=== PATIENT | male | born 1940 | race Caucasian/White ===

== ENCOUNTER 2022-01-05 17:34 | Inpatient (IN) | payer OTHER, MEDICARE, SELFPAY ==
--- NOTE | ~2022-01-05 | CT_ITS ---
EXAMINATION: CT pelvis wo con DATE: 01/05/2022 21:23 INDICATION: Pelvic fracture, pain TECHNIQUE: Computed tomography (CT) of the pelvis was performed without intravenous contrast. The dos e-length product (DLP) was 158.55 mGy-cm. Automated exposure control and iterative reconstruction keli hnique were employed. COMPARISON: None FINDINGS: There is a parasymphyseal fracture on the left. There is a fracture of the right inferior p ubic ramus. There is a fracture involving the anterior wall of the left acetabulum. The bladder is di stended. There is a burst fracture L4 with vertebroplasty change. There are age indeterminate fractur es involving the pedicles, lamina, and transverse processes of L4. IMPRESSION: 1. Left parasymphyseal fracture of the pubic symphysis. 2. Fracture of the right inferior pubic ramus. 3. Fracture of the anterior wall of the left acetabulum. 4. L4 burst fracture with vertebroplasty change and age indeterminate fractures involving the pedicle s, lamina, and transverse processes of L4. Reviewed, dictated and finalized at location F. BREAKER IMPRESSION: 1. Left parasymphyseal fracture of the pubic symphysis. 2. Fracture of the right inferior pubic ramus. 3. Fracture of the anterior wall of the left acetabulum. 4. L4 burst fracture with vertebroplasty change and age indeterminate fractures involving the pedicles, lamina, and transverse processes of L4.
--- NOTE | ~2022-01-05 | XR_ITS ---
EXAMINATION: XR hip BI 2V w AP pelvis DATE: 01/05/2022 19:51 INDICATION: Back pain after fall TECHNIQUE: AP view the pelvis and two views of each hip were obtained. COMPARISON: None. FINDINGS: There are fractures of the left inferior and superior pubic rami as well as a fracture of t he left acetabulum. There is moderate osteoarthritis of the hips. Calcified atherosclerosis is noted. There is vertebroplasty change at L4. IMPRESSION: 1. Fractures of the left inferior and superior rami as well as left acetabulum. Reviewed, dictated and finalized at location F. WARE TEST DEVELOPER
--- NOTE | ~2022-01-05 | CT_ITS ---
EXAMINATION: CT lumbar spine wo con DATE: 01/05/2022 21:32 INDICATION: Low back pain after fall, history of prostate cancer TECHNIQUE: Computed tomography (CT) of the lumbar spine was performed without intravenous contrast. T he dose-length product (DLP) was 673.67 mGy-cm. Iterative reconstruction was used. COMPARISON: None FINDINGS: There is an L4 burst fracture with vertebroplasty change. There are fractures involving the pedicles, lamina, and transverse processes of L4 which are age indeterminate. The remaining lumbar v ertebral bodies are normal in height. There is severe loss of intervertebral disc space height at L5- S1. Calcified atherosclerosis is noted. The bladder is distended. There is atelectasis versus pneumon ia in the partially visualized left lower lobe. IMPRESSION: 1. Burst fracture of L4 with vertebroplasty change and fractures involving the pedicles, lamina, and transverse processes of L4 which are age indeterminate. Reviewed, dictated and finalized at location F. EMARK AFFIXER
--- NOTE | ~2022-01-05 | XR_ITS ---
EXAMINATION: XR lumbar spine min 4V DATE: 01/05/2022 19:51 INDICATION: Back pain after fall, history of prostate cancer TECHNIQUE: Anteroposterior, lateral, and bilateral oblique views of the lumbar spine, and cone-down l ateral view of the lumbosacral junction were obtained. COMPARISON: None. FINDINGS: There is a burst fracture of L4 with vertebroplasty change. There is severe loss of interve rtebral disc space height at L5-S1. The intervertebral disc spaces are otherwise maintained. No acute lumbar spine fracture is identified. There are acute fractures of the left inferior and superior pub ic rami as well as a fracture of the left acetabulum. IMPRESSION: 1. L4 burst fracture with vertebroplasty change and severe spondylosis at L5-S1 without definite acut e osseous abnormality of the lumbar spine. 2. Left pelvic fractures as described. Reviewed, dictated and finalized at location F. SINGER IMPRESSION: 1. L4 burst fracture with vertebroplasty change and severe spondylosis at L5-S1 without definite acute osseous abnormality of the lumbar spine. 2. Left pelvic fractures as described.
--- NOTE | ~2022-01-05 | MR_ITS ---
EXAMINATION: MR lumbar spine wo con DATE: 01/08/2022 08:43 INDICATION: Spinal stenosis and low back pain TECHNIQUE: Magnetic resonance imaging (MRI) of the lumbar spine was performed without intravenous con trast. Sequences included sagittal T2-weighted FSE, sagittal T2-weighted FS FSE, sagittal T1-weighted FSE, and axial T2-weighted FSE. COMPARISON: None FINDINGS: Alignment is normal. L4 burst fracture with 80% central vertebral body height loss and 8 mm retropuls ion. There are associated fractures involving the posterior elements on both the left and right of L4 . These are better delineated on the prior CT which extend fracture lines extending across both the l eft and right pedicles and base of the transverse processes as well as across the right sided lamina. There is diffuse decreased signal throughout the vertebral body and posterior elements middle part t o edema also likely related to in the diffuse sclerosis throughout the vertebral body and posterior e lements seen on the prior CT is concerning for metastatic prostate cancer. There is also absent signa l at the left-sided vertebral body corresponding to changes of prior vertebroplasty. There is T1 and T2 hyperintense fatty atrophy of the paraspinal musculature in the lower lumbar spine. This is been r eplaced with hypointense T1 and T2 signal in the soft tissues surrounding the posterior elements of L 4 which is suspicious for extraosseous extension of malignancy. Remaining vertebral body heights are normal. There is a 10 mm 1 hypointense lesion with thin peripher al increased T2 signal at the left side of the L5 vertebral body with corresponding sclerosis on CT i mages consistent with additional metastatic lesion. There is increased T2 signal at the left and righ t sacral where on prior CT where there appear to be bilateral insufficiency fractures with early webster ges of healing suggesting these are subacute to chronic. There is decreased medullary T2 signal and s uggestion of some elevation of the periosteum at the superior aspect of the right posterior iliac spi ne where there is some increased sclerosis on the prior CT which is suspicious for additional metasta tic disease. There is ballooning of the L3-L4 and L4-5 disc space on either side of the first fracture. Moderate d isc height loss at L5-S1. Disc desiccation without disc height loss at L2-L3. The conus medullaris te rminates at L1-L2. There is normal signal in the caudal spinal cord. The following disc levels are sp ecifically discussed: T12-L1: Annular fissure with tiny central disc extrusion with minimal disc material extending a few m illimeters cephalad to the inferior endplate of T12. There is mild bilateral facet joint osteoarthrit is. There is no neural foraminal stenosis. There is no central canal stenosis. L1-L2: Disc is minimally bulging with additional annular fissure with tiny central disc protrusion. T here is mild bilateral facet joint osteoarthritis. There is no neural foraminal stenosis. There is no rmal central canal stenosis. L2-L3: Disc is minimally bulging with central annular fissure. There is mild bilateral facet joint os teoarthritis. There is mild bilateral neural foraminal stenosis. There is no central canal stenosis. L3-L4: The disc does not extend beyond the margin of the retropulsed superior endplate of L4. There i s mild bilateral facet joint osteoarthritis. There is mild to moderate bilateral neural foraminal adolph nosis. There is mild central canal stenosis at the level of the disc space with severe stenosis at th e level of the L4 vertebral body due to the retropulsion. L4-L5: The disc does not extend beyond the margin of the retropulsed inferior endplate of L4. There i s mild right and moderate left facet joint osteoarthritis. There is severe right and moderate to timur re left neural foraminal stenosis. There is moderate to severe central canal adolph
[2022-01-05 18:10] VITALS: BP 168/93; PULSE 95; RESP 16; TEMP 36.1; O2SAT 100
--- NOTE | 2022-01-05 21:16 | ED.GENADULT ---
HPI - General Adult General Chief complaint: Back Pain/Injury Stated complaint: low back pain Time Seen by Provider: 01/05/22 20:58 History of Present Illness HPI narrative: Patient is a 81-year-old gentleman who presents the emergency department with chief complaint of pelvic pain. 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 The patient states that today he did not have family members at home and was having severe pain even though his [facility] has been increasing his pain medicines at home patient reports that he talked to his doctors on the phone and they told him to go to the nearest facility the patient reports no new trauma reports that the pain is what is preventing him from walking. Related Data Allergies Allergy/AdvReac Type Severity Reaction Status Date / Time No Known Allergies Allergy Verified 01/05/22 21:42 Review of Systems Review of Systems: A 10 system review of systems was completed on the patient and is negative except for what is stated in the HPI. Nursing and ancillary documentation was reviewed. Exam Narrative: GENERAL: Well-appearing, well-nourished, and in no acute distress. HEAD: Normocephalic, atraumatic. EYES: PERRLA and EOMI. ENT: Nares clear, no rhinorrhea or epistaxis. Mucous membranes moist. NECK: Supple. CHEST: Clear to auscultation. No respiratory distress. HEART: Regular rate and rhythm. No murmur heard. Normal peripheral pulses. ABDOMEN: Soft, nontender, nondistended, normal active bowel sounds. EXTREMITIES: Normal range of motion. No edema. There is tenderness to palpation in the pelvis. There is no saddle anesthesia there is no numbness in the lower extremities. SKIN: Warm, dry, no rash. NEURO: No focal deficits. Alert and oriented x3. PSYCH: Normal mood and affect. Course Vital Signs Vital signs: Vital Signs Temperature 36.1 C L 01/05/22 18:10 Pulse Rate 95 01/05/22 18:10 Respiratory Rate 16 01/05/22 18:10 Blood Pressure 168/93 H 01/05/22 18:10 Pulse Oximetry 100 01/05/22 18:10 Oxygen Delivery Room Air 01/05/22 18:10 Temperature 36.1 C L 01/05/22 18:10 Pulse Rate 92 01/05/22 22:17 Respiratory Rate 16 01/05/22 22:17 Blood Pressure 148/92 H 01/05/22 22:17 Pulse Oximetry 99 01/05/22 22:17 Oxygen Delivery Room Air 01/05/22 18:10 Medical Decision Making Vital Signs Vital Signs: Vital Signs Temperature 36.1 C L 01/05/22 18:10 Pulse Rate 95 01/05/22 18:10 Respiratory Rate 16 01/05/22 18:10 Blood Pressure 168/93 H 01/05/22 18:10 Pulse Oximetry 100 01/05/22 18:10 Oxygen Delivery Room Air 01/05/22 18:10 Temperature 36.1 C L 01/05/22 18:10 Pulse Rate 92 01/05/22 22:17 Respiratory Rate 16 01/05/22 22:17 Blood Pressure 148/92 H 01/05/22 22:17 Pulse Oximetry 99 01/05/22 22:17 Oxygen Delivery Room Air 01/05/22 18:10 Lab Data Result diagrams: 01/05/22 21:38 01/05/22 21:38 Labs: Lab Results 01/05/22 01/05/22 Range/Units 21:38 21:38 WBC 10.9 H (4.5-10.0) K/mm3 RBC 3.64 L (4.6-6.20) M/mm3 Hgb 10.1 L (14.0-18.0) g/dL Hct 32.2 L (42.0-52.0) % MCV 88.5 (80-100) fl MCH 27.7 (26-34) pg MCHC 31.4 L (32-36) g/dl RDW 15.2 H (11.5-14.5) % Plt Count 275 (150-375) k/mm3 MPV 9.5 (7.4-10.4) fl Immature Gran % (Auto) 0.4 (0-0.5) % Neut % (Auto) 84.2 H (45.5-73.1) % Lymph % (Auto) 7.7 L (18.3-44.2) % [place] % (Auto) 6.5 (2.6-8.5) % Eos % (Auto) 0.6 (0-4.4) % Baso % (Auto) 0.6 (0.2-1.2) % Lymph # (Auto) 0.84 L (0.9-3.2) K/mm3 [place] # (Auto) 0.7 H (0.1-0.6) K/mm3 Eos # (Auto) 0.1 (0-0.3) K/mm3 Baso # (Auto) 0.1 (0.0-0.1) K/mm3 Abs Immat Gra
[2022-01-05] MEDS: HYDROmorphone HCL INJ (*CRX) 1 MG/ML SYR IV PUSH ×2 (21:44→23:39)
[2022-01-05 21:45] LABS: Basophils Absolute Auto 0.1 K/mm3 (0.0-0.1); Basophils Percent Auto 0.6 % (0.2-1.2); Eosinophils Absolute Auto 0.1 K/mm3 (0-0.3); Eosinophils Percent Auto 0.6 % (0-4.4); Hematocrit 32.2 % (42.0-52.0); Hemoglobin 10.1 g/dL (14.0-18.0); Immature Granulocyte Absolute 0.04 K/mm3 (0.00-0.031); Immature Granulocyte Percent A 0.4 % (0-0.5); Lymphocytes Absolute Auto 0.84 K/mm3 (0.9-3.2); Lymphocytes Percent Auto 7.7 % (18.3-44.2); Mean Corpuscular HGB Conc 31.4 g/dl (32-36); Mean Corpuscular Hemoglobin 27.7 pg (26-34); Mean Corpuscular Volume 88.5 fl (80-100); Mean Platelet Volume 9.5 fl (7.4-10.4); Monocytes Absolute Auto 0.7 K/mm3 (0.1-0.6); Monocytes Percent Auto 6.5 % (2.6-8.5); Neutrophils Absolute Auto 9.1 K/mm3 (1.3-6.7); Neutrophils Percent Auto 84.2 % (45.5-73.1); Platelet Count Result 275 k/mm3 (150-375); Red Blood Count 3.64 M/mm3 (4.6-6.20); Red Cell Distribution Width 15.2 % (11.5-14.5); White Blood Count 10.9 K/mm3 (4.5-10.0)
[2022-01-05 21:56] LABS: Alanine Aminotransferase 15 U/L (6-50); Alkaline Phosphatase 86 U/L (38-126); Anion Gap 10 mmol/L (8-16); Aspartate Amino Transferase 29 U/L (17-59); Bilirubin,Total 0.5 mg/dL (0.2-1.3); Blood Urea Nitrogen 19 mg/dL (9-20); Calcium 8.6 mg/dL (8.4-10.2); Carbon Dioxide 25 mmol/L (22-30); Chloride 102 mmol/L (98-107); Estimated CRCL calculation 29 ml/min; Estimated Glomerular Filt Rate > 60; Glucose 116 mg/dL (65-110); Sodium 137 mmol/L (137-145)
[2022-01-05 22:17] VITALS: BP 148/92; PULSE 92; RESP 16; O2SAT 99
[2022-01-05 23:00] VITALS: BP 138/80; PULSE 80; RESP 16; TEMP 36.8; O2SAT 98
[2022-01-05 23:55] VITALS: BP 136/76; PULSE 84; RESP 16; TEMP 36.8; O2SAT 97
--- NOTE | 2022-01-06 00:31 | PM.IMHP ---
H&P: HPI History of Present Illness Date/Time: 01/05/22 23:40 Chief Complaint: Back pain Narrative: Patient is a 81-year-old male past medical history of prostate cancer, or CABG x4 April 2021, lumbar compression fracture month ago presents to ED complaints back pain and inability to ambulate. Patient about a month ago found to have an L4 compression fraction which was unable to be amended through surgical intervention. He then was sent for rehab which he has completed successfully. Over the course of the last week he has had increasing pain and over last 3-4 days he has become bedbound prompting him to come to the ED. he lives with his youngest son. Prior to last 3 4 days he was able to ambulate with a cane. He is having difficulty urinating when laying in bed as well. In the ED: Lumbar spine CT scan consistent with L4 burst fracture, pelvic CT scan consistent left acetabulum anterior wall fracture and right inferior pubic rami fracture. Patient is having significant pain requiring IV Dilaudid. He is having difficulty urinating as he is not able to urinate lying in bed and now has suprapubic fullness. ER provider talked to Dr. Paiz and Dr. Jarquin will see patient in consultation. Patient to be admitted for subacute L4 compression burst fracture and pain control. Review of Systems Review of Systems: Constitutional: No Fever, No Chills, No Night Sweats, No Fatigue, No Malaise ENT/Mouth: No Hearing Changes, No Ear Pain, No Nasal Congestion, No Sinus Pain, No Hoarseness, No sore throat, No Rhinorrhea, No Swallowing Difficulty Eyes: No Eye Pain, No Redness, No Vision Changes Cardiovascular: No Chest Pain, No Palpitations, No Dyspnea on Exertion, No Orthopnea, No Claudication, No Edema Respiratory: No Cough, No Sputum, No Wheezing, No Shortness of Breath Gastrointestinal: No Nausea, No Vomiting, No Diarrhea, No Constipation, No Abdominal Pain, No Heartburn, No Hematochezia, No Melena Genitourinary: No Dysuria, No Urinary Frequency, No Hematuria, No Urinary Incontinence, No Urgency. Endorses difficulty urinating Musculoskeletal: Endorses back pain Skin: No Skin Lesions, No Pruritis, No Hair Changes Neuro: No Weakness, No Numbness, No Paresthesias, No Loss of Consciousness, No Syncope, No Dizziness, No Headache Psych: No Anxiety/Panic, No Depression, No Insomnia Heme: No Bruising, No Bleeding Lymph: No Adenopathy Endocrine: No Polyuria, No Polydipsia, No Temperature Intolerance PMF Past Medical History Medical History Prostate cancer metastatic to bone Family History Family History Mother Old age Father Leukemia Social History Social History Social History: Lives with his youngest son. Uses cane to ambulate. Smoking status: Never smoker Alcohol intake: never Substance use: never Meds Home Medications and Allergies Allergies Allergy/AdvReac Type Severity Reaction Status Date / Time No Known Allergies Allergy Verified 01/05/22 21:42 Vital Signs Vital Signs - 24 hr 01/05/22 18:10 01/05/22 22:17 01/05/22 23:00 Temperature 36.1 C L 36.8 C Pulse Rate 95 92 80 Respiratory Rate 16 16 16 Blood Pressure 168/93 H 148/92 H 138/80 Pulse Oximetry 100 99 98 Oxygen Delivery Room Air 01/05/22 23:55 Temperature 36.8 C Pulse Rate 84 Respiratory Rate 16 Blood Pressure 136/76 Pulse Oximetry 97 Oxygen Delivery Exam Narrative: - GENERAL: Pleasant frail elderly male in no acute distress. Appears comfortable when lying down - EYES: EOMI. Anicteric. - HENT: Moist mucous membranes. Poor dentition - LUNGS: Clear to auscultation bilaterally, no wheezing, rhonchi, or rales. - CARDIOVASCULAR: Regular rate and rhythm. - ABDOMEN: Soft, non-tender and non-distended. - EXTREMITIES: Peripheral pulses 2+. Non-tender. 1+ non
--- NOTE | 2022-01-06 00:38 | ADMGEN ---
This patient, Ashu Calix, was admitted to Medical Room 251-. Patient/family oriented to hospital policies and general routines including ID bracelet, bed and alarms, visiting hours, pain management, procedures, bathroom and other care routines, personal items, smoking policy, room service/diet, and visiting hours. Information on how to activate the Rapid Response Team has been discussed. Patient/Family are encouraged to report perceived risks to care and to ask questions if they do not understand what they are told or what they should do.
[2022-01-06 00:40] VITALS: BMI 18.1
[2022-01-06 00:46] VITALS: BP 179/98; PULSE 100; RESP 16; TEMP 36.5; O2SAT 100
[2022-01-06] MEDS: HYDROmorphone HCL INJ (*CRX) 1 MG/ML SYR IV PUSH ×5 (03:35→21:55)
[2022-01-06 04:40] LABS: SARS-CoV-2 RNA PCR Negative
[2022-01-06 04:55] VITALS: BP 146/78; PULSE 87; RESP 16; TEMP 36.4; O2SAT 100
[2022-01-06 08:00] VITALS: BP 142/84; PULSE 87; RESP 16; TEMP 36.4; O2SAT 98
[2022-01-06] MEDS: ASPIRIN 81 MG CHEWABLE TABLET PO (08:14)
[2022-01-06] MEDS: ATORVASTATIN 40 MG TABLET PO (08:14)
[2022-01-06 08:15] VITALS: PULSE 85
[2022-01-06] MEDS: CHOLECALCIFEROL 1,000 UNITS TABLET 2000 UNITS PO (08:15)
[2022-01-06] MEDS: METOPROLOL SUCCINATE EXT REL 100 MG TABCR PO (08:15)
[2022-01-06] MEDS: TAMSULOSIN HCL 0.4 MG CAPSULE PO (08:15)
[2022-01-06] MEDS: FERROUS SULFATE 324 MG TABLET PO (08:15)
[2022-01-06] MEDS: AMIODARONE HCL 200 MG TABLET PO (08:15)
[2022-01-06] MEDS: lisinopriL 10 MG TABLET PO (08:15)
[2022-01-06] MEDS: DOCUSATE SODIUM 100 MG CAPSULE PO ×2 (08:22→17:10)
[2022-01-06] MEDS: polyethylene glycoL 3350 17 GM POWD.PACK PO (08:23)
[2022-01-06] MEDS: SENNOSIDES 8.6 MG TABLET PO (09:05)
--- NOTE | 2022-01-06 12:56 | PC.NURSE ---
On 01/06/22, the student, [Millie Del Rio], provided care and completed [facility] documentation on this patient. I have reviewed the student's documentation and agree with the findings.
[2022-01-06 13:29] VITALS: BMI 18.1
[2022-01-06 13:45] VITALS: BP 128/73; PULSE 81; RESP 18; TEMP 36.4; O2SAT 100
--- NOTE | 2022-01-06 15:55 | PM.CNOR ---
Assessment and Plan Assessment and plan (1) Closed pelvic fracture: Code(s): S32.9XXA - Fracture of unspecified parts of lumbosacral spine and pelvis, initial encounter for closed fracture Status: Acute Assessment and Plan: Patient is an 81-year-old gentleman who presented to the emergency room yesterday mid day with inability to walk this week because of pain and weakness in his legs. He had CT scan of his lumbar spine and pelvis and x-rays of lumbar spine and pelvis. These demonstrate subacute but unhealed fractures of left inferior pubic ramus, medial most aspect of superior pubic ramus on the left and fracture at the junction of anterior acetabulum and superior pubic ramus. There is a little bit of callus formation there is also some resorption at the fractures. Of note there is also for shortening of the left sacral ala but without visible fracture line indicating that he had a fracture of the sacral ala but this looks healed now. He fell back in March of this year and was evaluated by his primary care physician [place] and had x-rays of his pelvis and patient states that 11 fractures were identified. He may be in correct about that but it sounds from his history that he pubic ramus fractures in probably the sacral ala fractures were diagnosed at that time. Apparently the L4 compression fracture was diagnosed then but I am a little more confused about the timing of that as there was some inconsistency in his story. At the end of the interview he advised me that 3 months ago he had the vertebroplasty procedure of L4 vertebral body and that it initially it seemed to have gone well but then on subsequent x-ray it was felt to have failed. He has been living with chronic pain in his lower back seems to radiate to his thighs and then 1 month ago he fell again and his pain was worse and then this past week he is lost the ability to walk because of pain and weakness. He was started on a prostate cancer pill 3 weeks ago. This is by his primary care physician at the [facility]. He has a list of medications but I do not see it on the home meds intake in the EMR. He did not know what was called. He does take oxycodone 10 mg q.4 hours and a fentanyl patch 12 mcg every 72 hours. He also had evidence of very comminuted L4 burst fracture with comminution of the pedicles and lamina and transverse processes as well and there is evidence of prior vertebroplasty centrally and to the left in the vertebral body. There seems to be near obliteration of the foramina due to comminuted fragments on the right at the L4-[address] Cordon the neurosurgeon has been consulted for his evaluation of this. Patient has a significant past medical history that relates to these problems. He was diagnosed with prostate cancer and he states that Diederich underwent 40 radiation treatments and still has tattoo perry over the sides of both hips and over top of the symphysis pubis marking where he had the radiation. This would of resulted in significant radiation affects to the pelvis. In 2004 he had 10 more radiation treatments to L4 when he was diagnosed with a bony metastasis at that time. He denies knowledge of any other bony metastases since that time. Impression: Patient has had very poor healing of the above fractures and this is result of his previous radiation which markedly impairs the healing response after fracture. 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 I suspect that he does have a significant element of foraminal stenosis at that level which may be causing L4 radiculopathy and he may have a degree of central canal stenosis as well. I will defer evaluation of that to the diesel engine specialist. He is at increased risk for
[2022-01-06] MEDS: BISACODYL 10 MG SUPPOSITORY RECTAL (17:10)
--- NOTE | 2022-01-06 19:50 | WPDNEUROSGCN ---
Assessment and Plan Assessment and plan (1) Lumbar burst fracture: Code(s): S32.001A - Stable burst fracture of unspecified lumbar vertebra, initial encounter for closed fracture Status: Acute Plan Mr. Calix is an 81-year-old male with history of metastatic prostate cancer who presents with multiple pelvic fractures found on workup for increasing pelvic pain. He also has an L4 burst fracture for which he has had a kyphoplasty within the last few months. Imaging shows 64% loss of height with about 42% canal stenosis at L4. It is difficult to determine the course of events or the true nature of his symptoms currently based on the information he is able to provide. He has significant pain on manipulation of his legs, and so it is also difficult to get a true neurologic exam, although he has at least 4/5 strength throughout his legs. I discussed my interest in getting an MRI lumbar spine to better evaluate the age of the fracture and the extent of stenosis. He indicated he would be ok with this, but it sounds as though he is not necessarily interested in pursuing any surgery if it were recommended. He also indicated that he signed up for hospice today and is mostly interested in pain control. Ultimately, I think it would be helpful to obtain MRI lumbar spine if he is amenable to this. Additionally, he is clear to start DVT ppx and work with PT/OT from my standpoint. Plan: -Recommend MRI lumbar spine to better assess degree of stenosis and age of fracture Review of Systems Review of Systems: 14-point ROS was conducted and was positive for hip pain bilaterally PMFSH Past Medical History Medical History (Updated 01/06/22 @ 20:10 by Shelley Jarquin MD) Lumbar burst fracture Prostate cancer metastatic to bone Family History Family History Mother Old age Father Leukemia Social History Social History Social History: Lives with his youngest son. Uses cane to ambulate. Smoking status: Never smoker Alcohol intake: never Substance use: never Lack of Transportation: No Lack of Food: Never True Current Housing: I Have Housing Concerned About Future Housing: No Difficulty Paying Gas/Electric Bills: No Difficulty Paying for Meds: No Currently Unemployed: No Education: Bachelor's Degree Difficulty w/ Childcare or Family Care: No Spiritual care concerns: No Meds Home Medications and Allergies Home Medications Medication Instructions Recorded Confirmed Type amiodarone 200 mg tablet 200 mg PO DAILY 01/06/22 01/06/22 History amitriptyline 25 mg tablet 25 mg PO HS 01/06/22 01/06/22 History aspirin 81 mg tablet 81 mg PO DAILY 01/06/22 01/06/22 History atorvastatin 40 mg tablet 40 mg PO DAILY 01/06/22 01/06/22 History cholecalciferol (vitamin D3) 50 50 mcg PO DAILY 01/06/22 01/06/22 History mcg (2,000 unit) tablet (Vitamin D3) empagliflozin 25 mg tablet 12.5 mg PO QAM 01/06/22 01/06/22 History fentanyl 12 mcg/hr transdermal 12 mcg topical Q72H 01/06/22 01/06/22 History patch fentanyl 25 mcg/hr transdermal 1 patch transdermal Q72H 01/06/22 01/06/22 History patch ferrous sulfate 324 mg (65 mg 324 mg PO DAILY 01/06/22 01/06/22 History iron) tablet,delayed release lisinopril 10 mg tablet 10 mg PO DAILY 01/06/22 01/06/22 History metoprolol succinate 100 mg 100 mg PO DAILY 01/06/22 01/06/22 History tablet,extended release 24 hr oxycodone 10 mg tablet 10 mg PO Q4H PRN Pain (Scale Score 01/06/22 01/06/22 History 7-10) sennosides 8.6 mg tablet 8.6 mg PO DAILY 01/06/22 01/06/22 History tamsulosin 0.4 mg capsule (Flomax) 0.4 mg PO DAILY 01/06/22 01/06/22 History Allergies Allergy/AdvReac Type Severity Reaction Status Date / Time morphine Allergy Unknown Verified 01/06/22 05:33 Vital Signs Vital Signs - 24 hr 01/05/22 22:17 01/05/22 23:00 01/05/22 23:5
[2022-01-06 19:52] VITALS: BP 133/79; PULSE 86; RESP 18; TEMP 36.1; O2SAT 100
[2022-01-06] MEDS: AMITRIPTYLINE HCL 25 MG TABLET PO (20:16)
[2022-01-06] MEDS: HYDROcodone/acetaminophen (*CRX) 5-325 MG TABLET 1 TAB PO (20:17)
[2022-01-06] MEDS: ENOXAPARIN 40 MG/0.4 ML SYRINGE SUB-Q (20:18)
[2022-01-07 03:21] VITALS: BP 170/96; PULSE 86; RESP 18; TEMP 35.9; O2SAT 100
[2022-01-07] MEDS: HYDROmorphone HCL INJ (*CRX) 1 MG/ML SYR IV PUSH (03:43)
[2022-01-07 08:30] VITALS: BP 151/89; PULSE 84; RESP 16; O2SAT 99
[2022-01-07 08:55] VITALS: PULSE 80
[2022-01-07] MEDS: FERROUS SULFATE 324 MG TABLET PO (08:55)
[2022-01-07] MEDS: oxyCODONE/ACETAMINOPHEN (*CRX) 10-325 MG TABLET 1 TAB PO ×4 (08:55→21:16)
[2022-01-07] MEDS: AMIODARONE HCL 200 MG TABLET PO (08:55)
[2022-01-07] MEDS: CHOLECALCIFEROL 1,000 UNITS TABLET 2000 UNITS PO (08:55)
[2022-01-07] MEDS: lisinopriL 10 MG TABLET PO (08:55)
[2022-01-07] MEDS: ASPIRIN 81 MG CHEWABLE TABLET PO (08:55)
[2022-01-07] MEDS: ATORVASTATIN 40 MG TABLET PO (08:55)
[2022-01-07] MEDS: DOCUSATE SODIUM 100 MG CAPSULE PO ×2 (08:55→17:12)
[2022-01-07 08:56] VITALS: PULSE 80
[2022-01-07] MEDS: polyethylene glycoL 3350 17 GM POWD.PACK PO (08:56)
[2022-01-07] MEDS: METOPROLOL SUCCINATE EXT REL 100 MG TABCR PO (08:56)
[2022-01-07] MEDS: TAMSULOSIN HCL 0.4 MG CAPSULE PO (08:56)
[2022-01-07] MEDS: SENNOSIDES 8.6 MG TABLET PO (09:02)
--- NOTE | 2022-01-07 10:09 | PCOTNOTE ---
Attempted OT evaluation, patient declined, reporting I am in to much pain right now, I cannot handle getting out of bed . Patient agreeable to therapy attempting at later time.
--- NOTE | 2022-01-07 10:11 | PCPTNOTE ---
Attempted PT evaluation, patient declined, stating that he is in too much pain right now. Pt agreed to therapy attempting evaluation again at a later time.
[2022-01-07] MEDS: fentaNYL (*CRX) 50 MCG PATCH TRANSDERM (10:27)
--- NOTE | 2022-01-07 10:48 | PM.IMPN ---
Progress Note: A&P Assessment and Plan (1) Acetabulum fracture: Code(s): S32.409A - Unspecified fracture of unspecified acetabulum, initial encounter for closed fracture Status: Acute (2) Closed pelvic fracture: Code(s): S32.9XXA - Fracture of unspecified parts of lumbosacral spine and pelvis, initial encounter for closed fracture Status: Acute Assessment and Plan: Patient is not a surgical candidate. He also does not want surgery. Continue pain control. Plan Patient is Wanting hospice. We will get his pain meds under control and then he can subsequently be set up for hospice on discharge Subjective Date/time seen: 01/07/22 10:48 patient does have a little better pain control today. Exam Narrative: - GENERAL: Pleasant frail elderly male in no acute distress. Appears comfortable when lying down - EYES: EOMI. Anicteric. - HENT: Moist mucous membranes. Poor dentition - LUNGS: Clear to auscultation bilaterally, no wheezing, rhonchi, or rales. - CARDIOVASCULAR: Regular rate and rhythm. - ABDOMEN: Soft, non-tender and non-distended. - EXTREMITIES: Peripheral pulses 2+. Non-tender. 1+ nonpitting edema lower extremities. Lower extremities cool to touch, limited range of motion due to pain - NEUROLOGIC: No focal neurological deficits. CN II-XII grossly intact. - PSYCHIATRIC: Awake, Alert and oriented x 3. Appropriate mood and affect. - SKIN: No rashes or lesions. Warm. - LYMPH: No cervical lymphadenopathy. Objective Data Vital Signs Vital Signs: Vital Signs - 24 hr 01/06/22 13:45 01/06/22 19:52 01/06/22 20:00 Temperature 97.6 F 96.9 F L Pulse Rate 81 86 Respiratory Rate 18 18 Blood Pressure 128/73 133/79 Pulse Oximetry 100 100 Oxygen Delivery Room Air 01/07/22 03:21 01/07/22 08:30 01/07/22 08:55 Temperature 96.7 F L Pulse Rate 86 84 80 Respiratory Rate 18 16 Blood Pressure 170/96 H 151/89 H Pulse Oximetry 100 99 Oxygen Delivery 01/07/22 08:56 01/07/22 08:55 Temperature Pulse Rate 80 Respiratory Rate Blood Pressure Pulse Oximetry Oxygen Delivery Room Air Intake/Output Intake/Output: Intake & Output 11/16/22 01/05/22 01/06/22 01/07/22 23:59 23:59 23:59 23:59 Intake Total 850 310 Output Total 1400 300 Balance -550 10 Meds/Results Medications: Active Medications Generic Name Dose Route Start Last Admin Trade Name Freq PRN Reason Stop Dose Admin Acetaminophen 650 mg 01/06/22 00:28 Acetaminophen 325 Mg Tablet PO Q4H PRN Mild Pain (1-3) or Fever Al Hydrox/Mg Hydrox/Simethicone 30 ml 01/06/22 00:28 Mag Hydrox/Al Hydrox/Simeth 30 Ml Udc PO QID PRN Dyspepsia Amiodarone HCl 200 mg 01/06/22 09:00 01/07/22 08:55 Amiodarone Hcl 200 Mg Tablet PO 200 mg DAILY CRISTIAN Administration Amitriptyline HCl 25 mg 01/06/22 21:00 01/06/22 20:16 Amitriptyline Hcl 25 Mg Tablet PO 25 mg HS CRISTIAN Administration Aspirin 81 mg 01/06/22 08:00 01/07/22 08:55 Aspirin 81 Mg Chewable Tablet PO 81 mg DAILY@0800 CRISTIAN Administration Atorvastatin Calcium 40 mg 01/06/22 09:00 01/07/22 08:55 Atorvastatin 40 Mg Tablet PO 40 mg DAILY CRISTIAN Administration Docusate Sodium 100 mg 01/06/22 09:00 01/07/22 08:55 Docusate Sodium 100 Mg Capsule PO 100 mg BID CRISTIAN Administration Enoxaparin Sodium 40 mg 01/06/22 21:00 01/06/22 20:18 Enoxaparin 40 Mg/0.4 Ml Syringe SUB-Q 40 mg 2100 CRISTIAN Administration Fentanyl 50 mcg 01/07/22 09:00 01/07/22 10:27 Fentanyl (*Crx) 50 Mcg Patch TRANSDERM 50 mcg Q72HR CRISTIAN Administration Ferrous Sulfate 324 mg 01/06/22 09:00 01/07/22 08:55 Ferrous Sulfate 324 Mg Tablet PO 324 mg DAILY CRISTIAN Administration Lisinopril 10 mg 01/06/22 09:00 01/07/22 08:55 Lisinopril 10 Mg Tablet PO 10 mg DAILY CRISTIAN Administration Magnesium Hydroxide 30 ml 01/06/22 00:28 Magnesium Hydroxide Susp 30 Ml Udc PO DAILY PRN
[2022-01-07] MEDS: LIDOCAINE 5% PATCH 1 PATCH TRANSDERM (12:37)
--- NOTE | 2022-01-07 13:06 | PM.PNORT ---
Progress Note: A&P Assessment and Plan (1) Closed pelvic fracture: Code(s): S32.9XXA - Fracture of unspecified parts of lumbosacral spine and pelvis, initial encounter for closed fracture Status: Acute Assessment and Plan: Patient remains at bed rest. Lovenox has been started at 9:00 p.m. last night 40 mg Q 24 hours and he has SCDs for DVT prophylaxis. I reviewed the neurosurgeons note from last evening and she is recommended obtaining an MRI scan lumbar spine. The nurse advised me today that on the telephone she recommended waiting until after the MRI scan before his mobilized. Patient asked me what I felt about the benefit and value of obtaining MRI scan of the lumbar spine and I advised him that I thought it was particularly important in his case. It will show whether there is concomitant metastatic disease which I think is less likely. Importantly, it will most accurately show the degree of central canal and foraminal stenosis and this will help prognosticate his risk of progressive neurologic compromise including lower extremity weakness and loss of bowel and bladder function if he is to remain ambulatory which could result in progressive collapse and progressive canal compromise. 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 From an orthopedic standpoint, I do not believe there is any specific treatment recommended for his pubic ramus fracture delayed unions other than protected weight-bearing on the left lower extremity and symptomatic pain control. Subjective Subjective Date/Time Seen: 01/07/22 13:06 Objective Data Vital Signs Vital Signs: Vital Signs - 24 hr 01/06/22 13:45 01/06/22 19:52 01/06/22 20:00 Temperature 36.4 C 36.1 C L Pulse Rate 81 86 Respiratory Rate 18 18 Blood Pressure 128/73 133/79 Pulse Oximetry 100 100 Oxygen Delivery Room Air 01/07/22 03:21 01/07/22 08:30 01/07/22 08:55 Temperature 35.9 C L Pulse Rate 86 84 80 Respiratory Rate 18 16 Blood Pressure 170/96 H 151/89 H Pulse Oximetry 100 99 Oxygen Delivery 01/07/22 08:56 01/07/22 08:55 Temperature Pulse Rate 80 Respiratory Rate Blood Pressure Pulse Oximetry Oxygen Delivery Room Air Intake/Output Intake/Output: Intake & Output 01/04/22 01/05/22 01/06/22 01/07/22 23:59 23:59 23:59 23:59 Intake Total 850 310 Output Total 1400 300 Balance -550 10 Meds/Results Medications: Active Medications Generic Name Dose Route Start Last Admin Trade Name Freq PRN Reason Stop Dose Admin Acetaminophen 650 mg 01/06/22 00:28 Acetaminophen 325 Mg Tablet PO Q4H PRN Mild Pain (1-3) or Fever Al Hydrox/Mg Hydrox/Simethicone 30 ml 01/06/22 00:28 Mag Hydrox/Al Hydrox/Simeth 30 Ml Udc PO QID PRN Dyspepsia Amiodarone HCl 200 mg 01/06/22 09:00 01/07/22 08:55 Amiodarone Hcl 200 Mg Tablet PO 200 mg DAILY CRISTIAN Administration Amitriptyline HCl 25 mg 01/06/22 21:00 01/06/22 20:16 Amitriptyline Hcl 25 Mg Tablet PO 25 mg HS CRISTIAN Administration Aspirin 81 mg 01/06/22 08:00 01/07/22 08:55 Aspirin 81 Mg Chewable Tablet PO 81 mg DAILY@0800 CRISTIAN Administration Atorvastatin Calcium 40 mg 01/06/22 09:00 01/07/22 08:55 Atorvastatin 40 Mg Tablet PO 40 mg DAILY CRISTIAN Administration Docusate Sodium 100 mg 01/06/22 09:00 01/07/22 08:55 Docusate Sodium 100 Mg Capsule PO 100 mg BID CRISTIAN Administration Enoxaparin Sodium 40 mg 01/06/22 21:00 01/06/22 20:18 Enoxaparin 40 Mg/0.4 Ml Syringe SUB-Q 40 mg 2100 CRISTIAN Administration Fentanyl 50 mcg 01/07/22 09:00 01/07/22 10:27 Fentanyl (*Crx) 50 Mcg Patch TRANSDERM 50 mcg Q72HR [facility]
--- NOTE | 2022-01-07 13:12 | PCOTNOTE ---
Per Dr. Paiz's orthopedic progress note from today (01/07/2022) and per RN, need to wait for MRI and clearance from neuro surgery prior to completing Occupational Therapy evaluation.
--- NOTE | 2022-01-07 13:15 | PCPTNOTE ---
Per Dr. Paiz's orthopedic progress note from today (01/07/2022) and per RN, need to wait for MRI and clearance from neuro surgery prior to completing PT evaluation.
[2022-01-07 14:00] VITALS: BP 130/75; PULSE 78; RESP 16; TEMP 36.9; O2SAT 99
[2022-01-07 19:19] VITALS: BP 137/78; PULSE 78; RESP 18; TEMP 36.8; O2SAT 98
[2022-01-07] MEDS: AMITRIPTYLINE HCL 25 MG TABLET PO (21:01)
[2022-01-07] MEDS: ENOXAPARIN 40 MG/0.4 ML SYRINGE SUB-Q (21:01)
[2022-01-08 03:23] VITALS: BP 135/73; PULSE 69; RESP 17; TEMP 36.2; O2SAT 100
[2022-01-08] MEDS: oxyCODONE/ACETAMINOPHEN (*CRX) 10-325 MG TABLET 1 TAB PO ×4 (07:52→21:01)
[2022-01-08 09:33] VITALS: BP 110/72; PULSE 90; RESP 17; O2SAT 98
[2022-01-08] MEDS: LIDOCAINE 5% PATCH 1 PATCH TRANSDERM (09:35)
[2022-01-08] MEDS: ASPIRIN 81 MG CHEWABLE TABLET PO (09:37)
[2022-01-08 09:38] VITALS: PULSE 80
[2022-01-08] MEDS: AMIODARONE HCL 200 MG TABLET PO (09:38)
[2022-01-08] MEDS: METOPROLOL SUCCINATE EXT REL 100 MG TABCR PO (09:38)
[2022-01-08] MEDS: polyethylene glycoL 3350 17 GM POWD.PACK PO (09:38)
[2022-01-08] MEDS: CHOLECALCIFEROL 1,000 UNITS TABLET 2000 UNITS PO (09:38)
[2022-01-08] MEDS: SENNOSIDES 8.6 MG TABLET PO (09:38)
[2022-01-08] MEDS: ATORVASTATIN 40 MG TABLET PO (09:38)
[2022-01-08] MEDS: lisinopriL 10 MG TABLET PO (09:38)
[2022-01-08] MEDS: FERROUS SULFATE 324 MG TABLET PO (09:38)
[2022-01-08] MEDS: DOCUSATE SODIUM 100 MG CAPSULE PO ×2 (09:38→16:57)
[2022-01-08] MEDS: TAMSULOSIN HCL 0.4 MG CAPSULE PO (09:39)
--- NOTE | 2022-01-08 10:23 | PM.IMPN ---
Progress Note: A&P Assessment and Plan (1) Acetabulum fracture: Code(s): S32.409A - Unspecified fracture of unspecified acetabulum, initial encounter for closed fracture Status: Acute (2) Closed pelvic fracture: Code(s): S32.9XXA - Fracture of unspecified parts of lumbosacral spine and pelvis, initial encounter for closed fracture Status: Acute Assessment and Plan: Patient is not a surgical candidate. He also does not want surgery. Continue pain control. (3) Lumbar burst fracture: Code(s): S32.001A - Stable burst fracture of unspecified lumbar vertebra, initial encounter for closed fracture Status: Acute Assessment and Plan: MRI pending Plan Patient is Wanting hospice. We will get his pain meds under control and then he can subsequently be set up for hospice on discharge Subjective Date/time seen: 01/08/22 10:23 pain better controlled Exam Narrative: - GENERAL: Pleasant frail elderly male in no acute distress. Appears comfortable when lying down - EYES: EOMI. Anicteric. - HENT: Moist mucous membranes. Poor dentition - LUNGS: Clear to auscultation bilaterally, no wheezing, rhonchi, or rales. - CARDIOVASCULAR: Regular rate and rhythm. - ABDOMEN: Soft, non-tender and non-distended. - EXTREMITIES: Peripheral pulses 2+. Non-tender. 1+ nonpitting edema lower extremities. Lower extremities cool to touch, limited range of motion due to pain - NEUROLOGIC: No focal neurological deficits. CN II-XII grossly intact. - PSYCHIATRIC: Awake, Alert and oriented x 3. Appropriate mood and affect. - SKIN: No rashes or lesions. Warm. - LYMPH: No cervical lymphadenopathy. Objective Data Vital Signs Vital Signs: Vital Signs - 24 hr 01/07/22 14:00 01/07/22 19:19 01/08/22 03:23 Temperature 98.4 F 98.3 F 97.1 F L Pulse Rate 78 78 69 Respiratory Rate 16 18 17 Blood Pressure 130/75 137/78 135/73 Pulse Oximetry 99 98 100 Oxygen Delivery 01/08/22 09:33 01/08/22 09:38 01/08/22 09:38 Temperature Pulse Rate 90 80 80 Respiratory Rate 17 Blood Pressure 110/72 Pulse Oximetry 98 Oxygen Delivery 01/08/22 09:40 Temperature Pulse Rate Respiratory Rate Blood Pressure Pulse Oximetry Oxygen Delivery Room Air Intake/Output Intake/Output: Intake & Output 01/05/22 01/06/22 01/07/22 01/08/22 23:59 23:59 23:59 23:59 Intake Total 850 1190 680 Output Total 1400 1000 350 Balance -550 190 330 Meds/Results Medications: Active Medications Generic Name Dose Route Start Last Admin Trade Name Freq PRN Reason Stop Dose Admin Acetaminophen 650 mg 01/06/22 00:28 Acetaminophen 325 Mg Tablet PO Q4H PRN Mild Pain (1-3) or Fever Al Hydrox/Mg Hydrox/Simethicone 30 ml 01/06/22 00:28 Mag Hydrox/Al Hydrox/Simeth 30 Ml Udc PO QID PRN Dyspepsia Amiodarone HCl 200 mg 01/06/22 09:00 01/08/22 09:38 Amiodarone Hcl 200 Mg Tablet PO 200 mg DAILY CRISTIAN Administration Amitriptyline HCl 25 mg 01/06/22 21:00 01/07/22 21:01 Amitriptyline Hcl 25 Mg Tablet PO 25 mg HS CRISTIAN Administration Aspirin 81 mg 01/06/22 08:00 01/08/22 09:37 Aspirin 81 Mg Chewable Tablet PO 81 mg DAILY@0800 CRISTIAN Administration Atorvastatin Calcium 40 mg 01/06/22 09:00 01/08/22 09:38 Atorvastatin 40 Mg Tablet PO 40 mg DAILY CRISTIAN Administration Docusate Sodium 100 mg 01/06/22 09:00 01/08/22 09:38 Docusate Sodium 100 Mg Capsule PO 100 mg BID CRISTIAN Administration Enoxaparin Sodium 40 mg 01/06/22 21:00 01/07/22 21:01 Enoxaparin 40 Mg/0.4 Ml Syringe SUB-Q 40 mg 2100 CRISTIAN Administration Fentanyl 50 mcg 01/07/22 09:00 01/07/22 10:27 Fentanyl (*Crx) 50 Mcg Patch TRANSDERM 50 mcg Q72HR CRISTIAN Administration Ferrous Sulfate 324 mg 01/06/22 09:00 01/08/22 09:38 Ferrous Sulfate 324 Mg Tablet PO 324 mg DAILY CRISTIAN Administration Lidocaine 1 patch 01/07/22 12:15 01/08/22 09:35 Lidocaine 5%
--- NOTE | 2022-01-08 10:28 | PCPTNOTE ---
Per Dr. Paiz's orthopedic progress note from 01/07/22 and per RN, need to wait for MRI and clearance from neuro surgery prior to completing PT evaluation. Neurosurgery has not yet seen pt this date.(01/08/22)
--- NOTE | 2022-01-08 12:16 | WPDNEUROSGPN ---
Progress Note: A&P Assessment and Plan (1) Lumbar burst fracture: Code(s): S32.001A - Stable burst fracture of unspecified lumbar vertebra, initial encounter for closed fracture Status: Acute Assessment and Plan: I had a long discussion with the patient today after his MRI explaining the results and treatment options. His leg strength does seem worse today than on my initial assessment. I discussed the possibility of surgery in the form of laminectomy for decompression only vs lumbar fusion and decompression. I am concerned about his ability to fuse/heal if we proceeded with a fusion-type of procedure; however, I believe that a decompression only would at least allow him to improve his strength and mobility at home. I stressed that this surgery would not improve the pain in his hips and may not help his back pain significantly but could help with the pain in his legs. He expressed multiple times that his biggest interest is controlling the pain, even if that means he cannot walk. He states he is ok with being in a wheelchair as long as he does not have significant pain. He is not in favor of proceeding with surgery at this time. He is in the process of registering for hospice and wants to have equipment at home to help him be as comfortable as possible. I also discussed these issues with his son Saeid on the phone. Saeid informed me of multiple issues: first, his fractures first occurred nearly a year ago. He was prescribed vitamins and medications to improve his bone health, but the patient refused to take them. He has been informed already of the patient's inability to heal his fractures because of poor bone quality. Saeid also informed me of the patient's substantial narcotic use and addictive behaviors. He has been on a high dose of narcotic but was recently able to lower that a bit. The patient was up walking with home health therapy with no difficulty until recently when he chose not to get out of bed. I relayed my discussion with the patient regarding his significant lumbar stenosis and option of surgery. Saeid understands the patient's decision not to proceed with surgery and his choice to transition to hospice. At this point, I believe it is reasonable to proceed with therapy if desired by the patient. I have discussed obtaining a TLSO brace for when he is upright and out of bed which may help provide some comfort for his back. He should avoid lifting > 10 lbs and bending/twisting exercises. Subjective Date/time seen: 01/08/22 12:16 Interval history: Mr. Calix states his pain is better controlled today. He developed some leg pain when moving to/from the MRI scanner, but that has since resolved. We discussed his symptoms over the last few months again this morning at length. He states again that his main complaint is the back and hip pain, but he has been having some radicular pain into the legs over the last couple months when up and walking. He was having difficulty moving his legs for the 3-4 days prior to admission which he thinks is partially because of pain and partially because of weakness. He was not having difficulty with urination as long as he can stand. Exam Narrative: AO to person, place, month/year Diffusely 3/5 strength in legs bilaterally today. This is at least partially pain limited, especially proximally Sensation intact to light touch Encinas catheter in place Objective Data Vital Signs Vital Signs: Vital Signs - 24 hr 01/07/22 14:00 01/07/22 19:19 01/08/22 03:23 Temperature 36.9 C 36.8 C 36.2 C L Pulse Rate 78 78 69 Respiratory Rate 16 18 17 Blood Pressure 130/75 137/78 135/73 Pulse Oximetry 99 98 100 Oxygen Delivery 01/08/22 09:33 01/08/22 09:38 01/08/22 09:38 Temperature Pulse Rate 90 80 80 Respiratory Rate 17 Blood Pressure 110/72 Pulse Oximetry 98 Oxygen Delivery 01/08/22 09:40 Temperature Pulse Rate Respiratory Rate Blood Pressure Pulse Oximet
[2022-01-08 14:57] VITALS: BP 115/63; PULSE 79; RESP 16; TEMP 36.1; O2SAT 99
[2022-01-08] MEDS: ENOXAPARIN 40 MG/0.4 ML SYRINGE SUB-Q (20:12)
[2022-01-08] MEDS: AMITRIPTYLINE HCL 25 MG TABLET PO (20:12)
[2022-01-08 21:29] VITALS: BP 121/68; PULSE 77; RESP 18; TEMP 36.8; O2SAT 99
[2022-01-09] MEDS: oxyCODONE/ACETAMINOPHEN (*CRX) 10-325 MG TABLET 1 TAB PO ×3 (01:02→09:14)
[2022-01-09 05:33] VITALS: BP 137/79; PULSE 78; RESP 18; TEMP 36.7; O2SAT 100
--- NOTE | 2022-01-09 08:47 | PCOTNOTE ---
Pt. plans to go hospice upon return home. TLSO brace has been ordered for pain management, but has not yet arrived. Nursing agreeable to follow up with therapy when brace has arrived. Following
[2022-01-09] MEDS: polyethylene glycoL 3350 17 GM POWD.PACK PO (08:57)
[2022-01-09] MEDS: LIDOCAINE 5% PATCH 1 PATCH TRANSDERM (08:57)
[2022-01-09 08:58] VITALS: PULSE 86
[2022-01-09] MEDS: METOPROLOL SUCCINATE EXT REL 100 MG TABCR PO (08:58)
[2022-01-09] MEDS: CHOLECALCIFEROL 1,000 UNITS TABLET 2000 UNITS PO (08:58)
[2022-01-09] MEDS: FERROUS SULFATE 324 MG TABLET PO (08:58)
[2022-01-09] MEDS: DOCUSATE SODIUM 100 MG CAPSULE PO (09:00)
[2022-01-09] MEDS: ASPIRIN 81 MG CHEWABLE TABLET PO (09:00)
[2022-01-09] MEDS: TAMSULOSIN HCL 0.4 MG CAPSULE PO (09:00)
[2022-01-09] MEDS: ATORVASTATIN 40 MG TABLET PO (09:00)
[2022-01-09] MEDS: lisinopriL 10 MG TABLET PO (09:01)
--- NOTE | 2022-01-09 09:30 | PM.DS ---
DS: Admitting Diagnosis Discharge Date January 09, 2022 Admitting Diagnosis compression fracture L4 metastatic prostate cancer DS: Discharge Diagnosis Discharge Diagnosis (1) Acetabulum fracture: Code(s): S32.409A - Unspecified fracture of unspecified acetabulum, initial encounter for closed fracture Status: Acute (2) Closed pelvic fracture: Code(s): S32.9XXA - Fracture of unspecified parts of lumbosacral spine and pelvis, initial encounter for closed fracture Status: Acute Assessment and Plan: Patient is not a surgical candidate. He also does not want surgery. Continue pain control. (3) Lumbar burst fracture: Code(s): S32.001A - Stable burst fracture of unspecified lumbar vertebra, initial encounter for closed fracture Status: Acute Assessment and Plan: MRI pending Plan Patient is Wanting hospice. We will get his pain meds under control and then he can subsequently be set up for hospice on discharge DS: Summary Hospital Course Hospital Course: patient is a 1-year-old male history of prostate cancer and metastatic disease came in with back pain and hip pain found to have compression fracture at L4. Patient has significant metastatic disease - Neurosurgery and Orthopedics was consulted they recommended back brace and which will be set up prior to discharge. Otherwise surgical intervention was recommended to help alleviate alleviate symptoms however patient refused surgery. Patient will be discharged on hospice Time Spent with Patient Time attestation: Total time spent providing and/or coordinating discharge services: Exam Narrative: - GENERAL: Pleasant frail elderly male in no acute distress. Appears comfortable when lying down - EYES: EOMI. Anicteric. - HENT: Moist mucous membranes. Poor dentition - LUNGS: Clear to auscultation bilaterally, no wheezing, rhonchi, or rales. - CARDIOVASCULAR: Regular rate and rhythm. - ABDOMEN: Soft, non-tender and non-distended. - EXTREMITIES: Peripheral pulses 2+. Non-tender. 1+ nonpitting edema lower extremities. Lower extremities cool to touch, limited range of motion due to pain - NEUROLOGIC: No focal neurological deficits. CN II-XII grossly intact. - PSYCHIATRIC: Awake, Alert and oriented x 3. Appropriate mood and affect. - SKIN: No rashes or lesions. Warm. - LYMPH: No cervical lymphadenopathy. Discharge Plan Discharge Attending physician on discharge: Reji Rankin Consulting providers: Nabeel Paiz ; Shelley Jarquin Discharging Clinician: Reji Rankin Patient Disposition: Hospice - Home Activity: no preference Diet: as tolerated Patient Instructions: Antibiotic Form, Encinas Catheter Placement and Care (DC) Stand Alone Forms: General Discharge Information Discharge Medications: Continued sennosides 8.6 mg Tablet 8.6 mg PO DAILY tamsulosin [Flomax] 0.4 mg Capsule 0.4 mg PO DAILY atorvastatin 40 mg Tablet 40 mg PO DAILY metoprolol succinate 100 mg Tablet Extended Release 24 Hr 100 mg PO DAILY lisinopril 10 mg Tablet 10 mg PO DAILY aspirin 81 mg Tablet 81 mg PO DAILY empagliflozin 25 mg Tablet 12.5 mg PO QAM amiodarone 200 mg Tablet 200 mg PO DAILY amitriptyline 25 mg Tablet 25 mg PO HS ferrous sulfate 324 mg (65 mg iron) Tablet,Delayed Release (Dr/Ec) 324 mg PO DAILY cholecalciferol (vitamin D3) [Vitamin D3] 50 mcg (2,000 unit) Tablet 50 mcg PO DAILY Discontinued fentanyl 25 mcg/hr Patch 72 Hour 1 patch TRANSDERMAL Q72H Rx Instructions: due sunday fentanyl 12 mcg/hr Patch 72 Hour 12 mcg topical Q72H Rx Instructions: due sunday oxycodone 10 mg Tablet 10 mg PO Q4H PRN (Reason: Pain (Scale Score 7-10)) Date of admission: 01/07/22 13:44 Primary Care Provider: [facility] Admitting Provider: Samy Sethi Attending physician on admi
[2022-01-09 09:47] VITALS: PULSE 86
[2022-01-09] MEDS: AMIODARONE HCL 200 MG TABLET PO (09:47)
[2022-01-09] MEDS: SENNOSIDES 8.6 MG TABLET PO (09:47)
--- NOTE | 2022-01-09 09:55 | PCPTNOTE ---
Attempted PT eval. Pt refused stating he is trying to have a bowel movement. RN aware. Will Follow
[2022-01-09] MEDS: BISACODYL 10 MG SUPPOSITORY RECTAL (11:49)
== END 2022-01-09 13:55 | disposition hospice, home (50) | DRG 543 ==
LOC: ANHED 23:20 → ANH2MED 01-06 00:13
PROVIDERS: Admitting Provider Student in an Organized Health Care Education/Training Program; Emergency Provider Emergency Medicine; Visit Provider Chiropractor
DX: M84.58XA Pathological fracture in neoplastic disease, other specified site, initial encounter for fracture (principal); C79.51 Secondary malignant neoplasm of bone; C61 Malignant neoplasm of prostate; M84.550A Pathological fracture in neoplastic disease, pelvis, initial encounter for fracture; Z20.822 Contact with and (suspected) exposure to COVID-19; Z66 Do not resuscitate; Z91.81 History of falling
CPT/HCPCS: 36415; 72110; 72131; 72148; 72192; 73521; 80053; 85025; 96372; 96374; 96376; 99285; A9270; G0378; J1170; J1650; U0003; U0005

== ENCOUNTER 2022-01-29 06:48 | Inpatient (IN) | payer MEDICARE, OTHER, SELFPAY ==
[2022-01-29] VITALS (30 sets, daily range): BP systolic 109–183; BP diastolic 74–113; PULSE 86–123; RESP 12–23; TEMP 36.2–36.8; O2SAT 96–100
--- NOTE | ~2022-01-29 | CT_ITS ---
EXAMINATION: CT abdomen pelvis w con DATE: 01/29/2022 08:44 INDICATION: Generalized abdominal pain. TECHNIQUE: Computed tomography (CT) of the abdomen and pelvis was performed with 100 mL Omnipaque 350 intravenous contrast. Automated exposure control and iterative reconstruction technique were employe d. The dose-length product was 159.93 mGy-cm. COMPARISON: Pelvis CT 01/05/2022, MRI lumbar spine 01/08/2022 FINDINGS: The visualized portions of the lung bases demonstrate mild atelectasis. There is mild bronc hiectasis in left lower lobe. No pleural effusion. There is a left posterior diaphragmatic hernia con taining fat. The heart size is normal. No pericardial effusion. The liver, gallbladder, spleen, pancr eas, and adrenal glands are normal. There is cortical thinning in the kidneys. There is a Encinas tyler ter in the bladder, which is markedly distended. There is dependent hyperdense material in the bladde r. There are no dilated loops of bowel. The appendix is not visualized. There are no pathologically e nlarged lymph nodes. There is no free intraperitoneal fluid. There is moderate stenosis of right exte rnal iliac artery. There are healing fractures of left superior and inferior pubic rami. There are he aling insufficiency fractures of the bilateral sacral ala. The sacrum demonstrates trabecular and cor tical thickening, consistent with Paget disease. There is a burst fracture of L4 with 4/5 loss of hei ght, retropulsion of bone 7 mm into central spinal canal, and changes of vertebroplasty. There are fr actures of the bilateral L4 pedicles and posterior elements. There is a mixed lytic and sclerotic pat tern in L4. There is a soft tissue mass around L4 extending into the right psoas muscle. There is a p ermeative lytic lesion of right iliac crest. There is a sclerotic lesion in L5 vertebral body. There is severe lower lumbar spondylosis. IMPRESSION: 1. Markedly distended bladder with Encinas catheter in expected position. Hyperdense material in the de pendent bladder is new from 01/05/2022 and may be contrast. 2. Bone lesions involving L4, L5, and right iliac crest, consistent with metastatic disease. Reviewed, dictated and finalized at location [facility] IMPRESSION: 1. Markedly distended bladder with Encinas catheter in expected position. Hyperde nse material in the dependent bladder is new from 01/05/2022 and may be contras t. 2. Bone lesions involving L4, L5, and right iliac crest, consistent with metast atic disease.
--- NOTE | 2022-01-29 07:09 | ECG_ITS ---
Measurements Intervals [place] Rate: 114 P: -50 CA: 159 QRS: 7 QRSD: 88 T: 48 QT: 337 QTc: 465 Interpretive Statements SINUS TACHYCARDIA NONSPECIFIC ST & T-WAVE ABNORMALITY ABNORMAL RHYTHM ECG NO PREVIOUS ECG AVAILABLE FOR COMPARISON Electronically Signed On 01-29-2022 8:42:25 SECURITY LEAD by Reji Valero M.D.
--- NOTE | 2022-01-29 07:09 | ED.ABDPAIN ---
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 It is unclear what started his pain and it involves the entire abdomen. He states it comes in waves, at maximum is rated 9/10 and does not radiate. He denies vomiting and is able to pass gas and stool without blood. Related Data Home Medications Medication Instructions Recorded Confirmed amiodarone 200 mg tablet 200 mg PO DAILY 01/06/22 01/06/22 amitriptyline 25 mg tablet 25 mg PO HS 01/06/22 01/06/22 aspirin 81 mg tablet 81 mg PO DAILY 01/06/22 01/06/22 atorvastatin 40 mg tablet 40 mg PO DAILY 01/06/22 01/06/22 cholecalciferol (vitamin D3) 50 50 mcg PO DAILY 01/06/22 01/06/22 mcg (2,000 unit) tablet (Vitamin D3) empagliflozin 25 mg tablet 12.5 mg PO QAM 01/06/22 01/06/22 ferrous sulfate 324 mg (65 mg 324 mg PO DAILY 01/06/22 01/06/22 iron) tablet,delayed release lisinopril 10 mg tablet 10 mg PO DAILY 01/06/22 01/06/22 metoprolol succinate 100 mg 100 mg PO DAILY 01/06/22 01/06/22 tablet,extended release 24 hr sennosides 8.6 mg tablet 8.6 mg PO DAILY 01/06/22 01/06/22 tamsulosin 0.4 mg capsule (Flomax) 0.4 mg PO DAILY 01/06/22 01/06/22 Allergies Allergy/AdvReac Type Severity Reaction Status Date / Time morphine Allergy Unknown Verified 01/06/22 05:33 Review of Systems Review of Systems: CONSTITUTIONAL: Denies fever, chills, or sweats. EYES: Denies visual changes, redness, or discharge. ENT: Denies rhinorrhea, congestion, sore throat, or otalgia. CARDIOVASCULAR: Denies chest pain, palpitations, or edema. RESPIRATORY: Denies cough or dyspnea. GASTROINTESTINAL: Abdominal pain denies nausea, vomiting, or diarrhea. GENITOURINARY: Denies dysuria or hematuria. SKIN: Denies rash or itching. MUSCULOSKELETAL: Denies back pain, joint pain, or myalgia. NEUROLOGIC: Denies headache, numbness, dizziness, or weakness. PSYCHIATRIC: Denies anxiety or depression. [facility] Past Medical History Medical History (Updated 01/29/22 @ 15:21 by Gopal Amato MD) Arthritis Borderline diabetes Chronic anemia Coronary artery disease Hyperlipidemia Hypertension Lumbar burst fracture Paroxysmal atrial fibrillation Prostate cancer metastatic to bone Urinary retention Surgical History Surgical History (Updated 01/29/22 @ 13:12 by Alma Retana PA-C) History of appendectomy History of four vessel coronary artery bypass graft History of vertebroplasty Family History Family History Mother Old age Father Leukemia Social History Social History (Updated 01/29/22 @ 14:35 by Alma Retana PA-C) Social History: Surrogate medical decision maker: Saeid Calix, son. Code status: Do not resuscitate. Smoking status: Never smoker Alcohol intake: never Substance use: never Lack of Transportation: No Lack of Food: Never True Current Housing: I Have Housing Concerned About Future Housing: No Difficulty Paying Gas/Electric Bills: No Difficulty Paying for Meds: No Currently Unemployed: No Education: Bachelor's Degree Difficulty w/ Childcare or Family Care: No Additional living arrangements comments: Lives with son. Has a cane at home but typically uses the wheelchair now. Additional occupation/education comments: Musician, [employer]. Spiritual care concerns: No Exam Narrative: GENERAL: Well-developed, cachectic, in acute distress due to pain HEAD: Normocephalic, atraumatic. EYES: PERRLA and EOMI. ENT: Nares clear, no rhinorrhea or epistaxis. Mucous membranes dry. Oropharynx without tonsillar hypertrophy exudate or other lesions. NECK: Supple.
[2022-01-29 07:10] LABS: Basophils Absolute Auto 0.1 K/mm3 (0.0-0.1); Basophils Percent Auto 0.5 % (0.2-1.2); Eosinophils Percent Auto 0.1 % (0-4.4); Hematocrit 41.3 % (42.0-52.0); Hemoglobin 12.9 g/dL (14.0-18.0); Immature Granulocyte Absolute 0.07 K/mm3 (0.00-0.031); Immature Granulocyte Percent A 0.4 % (0-0.5); Lymphocytes Absolute Auto 0.78 K/mm3 (0.9-3.2); Lymphocytes Percent Auto 4.5 % (18.3-44.2); Mean Corpuscular HGB Conc 31.2 g/dl (32-36); Mean Corpuscular Hemoglobin 27.9 pg (26-34); Mean Corpuscular Volume 89.4 fl (80-100); Mean Platelet Volume 9.6 fl (7.4-10.4); Monocytes Absolute Auto 0.9 K/mm3 (0.1-0.6); Monocytes Percent Auto 5.4 % (2.6-8.5); Neutrophils Absolute Auto 15.4 K/mm3 (1.3-6.7); Neutrophils Percent Auto 89.1 % (45.5-73.1); Platelet Count Result 361 k/mm3 (150-375); Red Blood Count 4.62 M/mm3 (4.6-6.20); Red Cell Distribution Width 15.1 % (11.5-14.5); White Blood Count 17.3 K/mm3 (4.5-10.0)
[2022-01-29] MEDS: fentaNYL CITRATE INJ (*CRX) 100 MCG/2 ML VIAL 50 MCG IV PUSH ×2 (07:13→07:59)
[2022-01-29] MEDS: SODIUM CHLORIDE 0.9% IV 1,000 ML 999 ML IV CONT ×2 (07:13→10:14)
[2022-01-29 07:27] LABS: Alanine Aminotransferase 22 U/L (6-50); Albumin Level 4.3 g/dL (3.5-5.1); Alkaline Phosphatase 98 U/L (38-126); Anion Gap 11 mmol/L (8-16); Aspartate Amino Transferase 31 U/L (17-59); Bilirubin,Total 0.8 mg/dL (0.2-1.3); Blood Urea Nitrogen 24 mg/dL (9-20); Calcium 8.5 mg/dL (8.4-10.2); Carbon Dioxide 24 mmol/L (22-30); Chloride 98 mmol/L (98-107); Estimated CRCL calculation 29 ml/min; Estimated Glomerular Filt Rate 58; Glucose 181 mg/dL (65-110); Lipase 28 U/L (23-300); Potassium 4.1 mmol/L (3.4-5.0); Sodium 133 mmol/L (137-145)
[2022-01-29 07:35] LABS: Lactic Acid Reflex 3.8 mmol/L (0.7-2.0)
[2022-01-29 07:40] LABS: Appearance Urine Clear (Clear); Bilirubin Urine 1+ (Negative); Blood Urine Negative (Negative); Color Urine Yellow (Yellow); Glucose Urine UA Negative (Negative); Ketones Urine Negative (Negative); Leukocyte Esterase Ur 3+ LEU/UL (Negative); Nitrate Urine Negative (Negative); Protein Urine 3+ mg/dL (Negative); Urobilinogen Urine 0.2 mg/dL (<2.0); pH Urine >=9.0 (5.0-9.0)
[2022-01-29 07:45] LABS: Bacteria Urine 2+ /hpf; Mucus Urine Rare /lpf; Squamous Epithelial Cell Urine Occasional /hpf (Few); WBC Clumps Urine Present /HPF; WBC Urine 31-50 /hpf
[2022-01-29 07:47] LABS: Add Urine Microscopic? YES
[2022-01-29 09:00] LABS: Influenza A QL RT-PCR Negative (Negative); Influenza B QL RT-PCR Negative (Negative); SARS-CoV-2 RNA PCR Negative
--- NOTE | 2022-01-29 09:39 | PC.NURSE ---
attempted to irrigate pt current indwelling catheter. unable to flush cathether. MARCELO from Dr. Amato to replace cath. Upon removing catheter pt spontaneously starts to urinate. Approx 500 ml urinated. New catheter placed and approx 400ml drained in [place]
[2022-01-29 10:24] LABS: Reflex Lactic Acid Yes or No Add Lactic
[2022-01-29 11:23] LABS: Lactic Acid 1.8 mmol/L (0.7-2.0)
--- NOTE | 2022-01-29 13:00 | PM.IMHP ---
H&P: HPI History of Present Illness Date/Time: 01/29/22 13:00 Chief Complaint: Abdominal pain. Narrative: This is a pleasant 81-year-old male with prostate cancer with bony metastases, urinary tension with indwelling Encinas, and coronary artery disease status post CABG x4 in April 2021 who presented to the emergency department for evaluation of abdominal pain. He was admitted to the hospital for several days last month with inability to ambulate due to back pain. Imaging showed burst fracture at L4 and nonsurgical pelvic fractures. He was discharged home on 01/09/2022 with plans to meet with hospice in the near future. He has not yet met with hospice but plans are to do so sometime this week. He has been controlling his pain with fentanyl patches and oxycodone. Over the past several days he reports a gradual onset of diffuse abdominal discomfort for which he has been taking oxycodone without relief. He has difficulties describing the pain but it seems to encompass almost the entire abdomen without radiation. He has not noticed any significant aggravating or alleviating factors. Due to the abdominal discomfort, he has not had much in the way of oral intake and he feels a bit dehydrated. He was tachycardic on arrival to the ED with white blood cell count of 17.3 and a lactic acid level of 3.8. Urinalysis is positive for leukocyte esterase, WBC's, WBC clumps, and 2+ bacteria. CT of the abdomen and pelvis showed a markedly distended bladder with Encinas catheter in expected position and hyperdense material in the dependent bladder, possibly contrast. Encinas catheter was exchanged and his symptoms have improved markedly. He feels too weak to go home and he is being admitted in this setting for IV antibiotics and supportive care. He had not necessarily noticed if he had a decrease in urine output recently or not. Review of Systems Review of Systems: Twelve systems were reviewed. No fever, chills, or sweats. Poor appetite but no nausea or vomiting. No diarrhea. In fact he does have some constipation due to the opiate pain medication. No chest pain or shortness of breath. Except as documented, all other systems were reviewed and are negative. 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 Code status: Do not resuscitate. Smoking status: Never smoker Alcohol intake: never Substance use: never Lack of Transportation: No Lack of Food: Never True Current Housing: I Have Housing Concerned About Future Housing: No Difficulty Paying Gas/Electric Bills: No Difficulty Paying for Meds: No Currently Unemployed: No Education: Bachelor's Degree Difficulty w/ Childcare or Family Care: No Additional living arrangements comments: Lives with son. Has a cane at home but typically uses the wheelchair now. Additional occupation/education comments: Musician, [employer]. Spiritual care concerns: No Meds Home Medications and Allergies Home Medications Medication Instructions Recorded Confirmed Type amiodarone 200 mg tablet 200 mg PO DAILY 01/06/22 01/06/22 History amitriptyline 25 mg tablet 25 mg PO HS 01/06/22 01/06/22 History aspirin 81 mg tablet 81 mg PO DAILY 01/06/22 01/06/22 History atorvas
[2022-01-29 14:16] LABS: Hemoglobin A1C 5.8 % (<5.7)
[2022-01-29] MEDS: SODIUM CHLORIDE 0.9% IV 1,000 ML 100 ML IV CONT (15:30)
[2022-01-29] MEDS: oxyCODONE/ACETAMINOPHEN (*CRX) 10-325 MG TABLET 1 TAB PO (18:15)
[2022-01-29 19:06] LABS: Glucose Point of Care 100 mg/dl (65-105)
--- NOTE | 2022-01-29 21:19 | ADMGEN ---
This patient, Ashu Calix, was admitted to Medical Room 252-01. Patient/family oriented to hospital policies and general routines including ID bracelet, bed and alarms, visiting hours, pain management, procedures, bathroom and other care routines, personal items, smoking policy, room service/diet, and visiting hours. Information on how to activate the Rapid Response Team has been discussed. Patient/Family are encouraged to report perceived risks to care and to ask questions if they do not understand what they are told or what they should do.
[2022-01-29] MEDS: AMITRIPTYLINE HCL 25 MG TABLET PO (22:07)
[2022-01-30 03:07] VITALS: BP 130/64; PULSE 84; RESP 17; TEMP 36.4; O2SAT 99
[2022-01-30 05:42] LABS: Basophils Absolute Auto 0.1 K/mm3 (0.0-0.1); Basophils Percent Auto 0.7 % (0.2-1.2); Eosinophils Absolute Auto 0.1 K/mm3 (0-0.3); Eosinophils Percent Auto 0.6 % (0-4.4); Hematocrit 28.6 % (42.0-52.0); Hemoglobin 8.9 g/dL (14.0-18.0); Immature Granulocyte Absolute 0.04 K/mm3 (0.00-0.031); Immature Granulocyte Percent A 0.5 % (0-0.5); Lymphocytes Absolute Auto 0.82 K/mm3 (0.9-3.2); Lymphocytes Percent Auto 10.2 % (18.3-44.2); Mean Corpuscular HGB Conc 31.1 g/dl (32-36); Mean Corpuscular Hemoglobin 27.6 pg (26-34); Mean Corpuscular Volume 88.5 fl (80-100); Mean Platelet Volume 9.4 fl (7.4-10.4); Monocytes Absolute Auto 0.6 K/mm3 (0.1-0.6); Neutrophils Absolute Auto 6.4 K/mm3 (1.3-6.7); Platelet Count Result 239 k/mm3 (150-375); Red Blood Count 3.23 M/mm3 (4.6-6.20); Red Cell Distribution Width 15.2 % (11.5-14.5)
[2022-01-30] MEDS: fentaNYL (*CRX) 12 MCG PATCH TRANSDERM (05:42)
[2022-01-30] MEDS: fentaNYL (*CRX) 25 MCG PATCH TRANSDERM (05:44)
[2022-01-30 06:01] LABS: Anion Gap 2 mmol/L (8-16); Blood Urea Nitrogen 19 mg/dL (9-20); Calcium 7.5 mg/dL (8.4-10.2); Carbon Dioxide 25 mmol/L (22-30); Chloride 103 mmol/L (98-107); Estimated CRCL calculation 35 ml/min; Estimated Glomerular Filt Rate > 60; Glucose 94 mg/dL (65-110); Potassium 3.6 mmol/L (3.4-5.0); Sodium 130 mmol/L (137-145)
[2022-01-30] MEDS: oxyCODONE HCL (*CRX) 5 MG TAB IR 10 MG PO ×3 (08:30→20:00)
[2022-01-30] MEDS: lisinopriL 10 MG TABLET PO (08:32)
[2022-01-30] MEDS: SENNOSIDES 8.6 MG TABLET PO (08:32)
[2022-01-30] MEDS: EMPAGLIFLOZIN 12.5 MG TABLET PO (08:32)
[2022-01-30] MEDS: CHOLECALCIFEROL 1,000 UNITS TABLET 2000 UNITS PO (08:32)
[2022-01-30] MEDS: FERROUS SULFATE 324 MG TABLET PO (08:32)
[2022-01-30] MEDS: METOPROLOL SUCCINATE EXT REL 100 MG TABCR PO (08:33)
[2022-01-30] MEDS: AMIODARONE HCL 200 MG TABLET PO (08:33)
[2022-01-30] MEDS: ASPIRIN 81 MG ENTERIC TABLET PO (08:33)
[2022-01-30] MEDS: ATORVASTATIN 40 MG TABLET PO (08:33)
[2022-01-30] MEDS: TAMSULOSIN HCL 0.4 MG CAPSULE PO (08:33)
[2022-01-30 08:40] LABS: Glucose Point of Care 84 mg/dl (65-105)
[2022-01-30 09:44] VITALS: BP 103/64; PULSE 85; RESP 14; TEMP 36.6; O2SAT 100
[2022-01-30] MEDS: ENOXAPARIN 40 MG/0.4 ML SYRINGE SUB-Q (11:11)
[2022-01-30 12:05] LABS: Glucose Point of Care 107 mg/dl (65-105)
[2022-01-30 14:20] VITALS: BP 95/65; PULSE 77; RESP 14; TEMP 36.6; O2SAT 100
[2022-01-30] MEDS: LIDOCAINE 5% PATCH 1 PATCH TRANSDERM (14:50)
--- NOTE | 2022-01-30 15:44 | PM.IMPN ---
Progress Note: A&P Assessment and Plan (1) Sepsis: Code(s): A41.9 - Sepsis, unspecified organism Status: Acute Assessment and Plan: felt to be secondary to UTI. Blood and urine cultures pending leukocytosis resolved afebrile. lactic acid levels normalized Continue IV antibiotics (2) Urinary retention: Code(s): R33.9 - Retention of urine, unspecified Status: Acute Assessment and Plan: felt to be secondary to Encinas catheter dysfunction Encinas was replaced is draining appropriately continue to monitor urine output (3) Dehydration: Code(s): E86.0 - Dehydration Status: Acute Assessment and Plan: patient has been adequately rehydrated with IV fluids and is tolerating p.o. intake IV fluids discontinued (4) Urinary tract infection: Code(s): N39.0 - Urinary tract infection, site not specified Status: Acute Assessment and Plan: as noted above. Urine culture pending continue IV ceftriaxone await results and tailor antibiotics accordingly (5) Chronic anemia: Code(s): D64.9 - Anemia, unspecified Status: Acute Assessment and Plan: hemoglobin declined 3 points from admission no evidence of active blood loss may be dilutional from IV fluid resuscitation recheck H&H this afternoon to ensure remaining stable continue home ferrous sulfate (6) Hypertension: Code(s): I10 - Essential (primary) hypertension Status: Acute Assessment and Plan: blood pressures have been reasonably controlled continue home lisinopril and metoprolol (7) Prostate cancer metastatic to bone: Code(s): C61 - Malignant neoplasm of prostate; C79.51 - Secondary malignant neoplasm of bone Status: Chronic Assessment and Plan: no acute issues. The patient's oncologist has recommended hospice care and patient is in agreement. 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 The patient complains of pain in his low back, buttocks, and hips that he states is almost unbearable. His abdominal pain has improved with decompression of his bladder. He complains of wound on his buttock that is very painful. He denies fever, chills, nausea, vomiting. The patient states that ultimately he wishes to be comfortable. He does not wish to proceed with any rehab or therapy and feels that he is no longer progressing towards meaningful recovery. He would like to proceed with hospice care but wants to ensure that his son will be a part of the decision-making process. Review of Systems Review of Systems: All systems reviewed & are unremarkable except as noted in HPI and below Exam Narrative: General: Thin, frail 81-year-old male, sitting up, comfortable, NARD Neuro: awake, alert and oriented x4, speech clear, no focal neuro deficits noted HEENMT: normocephalic, atraumatic, EOMI, sclerae anicteric, moist oral mucosa Respiratory: clear to auscultation bilaterally, nonlabored breathing Cardio: regular rate, regular rhythm with S1-S2 Abdomen: nondi
[2022-01-30 16:00] VITALS: BP 95/63; PULSE 81; RESP 16; TEMP 36.9; O2SAT 98
[2022-01-30 17:03] LABS: Glucose Point of Care 115 mg/dl (65-105)
[2022-01-30 17:36] LABS: Hematocrit 29.7 % (42.0-52.0); Hemoglobin 9.1 g/dL (14.0-18.0)
[2022-01-30 20:00] VITALS: BP 111/68; PULSE 79; RESP 18; TEMP 37.3; O2SAT 100
[2022-01-30] MEDS: AMITRIPTYLINE HCL 25 MG TABLET PO (20:00)
[2022-01-30 21:06] LABS: Glucose Point of Care 113 mg/dl (65-105)
[2022-01-31] VITALS: BP 117/72; PULSE 94; RESP 18; TEMP 36.2; O2SAT 100
[2022-01-31 04:00] VITALS: BP 132/69; PULSE 76; RESP 18; TEMP 36.4; O2SAT 100
[2022-01-31 05:29] LABS: Hematocrit 29.8 % (42.0-52.0); Hemoglobin 9.1 g/dL (14.0-18.0); Mean Corpuscular HGB Conc 30.5 g/dl (32-36); Mean Corpuscular Hemoglobin 27.7 pg (26-34); Mean Corpuscular Volume 90.6 fl (80-100); Mean Platelet Volume 9.8 fl (7.4-10.4); Platelet Count Result 231 k/mm3 (150-375); Red Blood Count 3.29 M/mm3 (4.6-6.20); Red Cell Distribution Width 15.1 % (11.5-14.5); White Blood Count 6.8 K/mm3 (4.5-10.0)
[2022-01-31 06:00] LABS: Anion Gap 6 mmol/L (8-16); Blood Urea Nitrogen 21 mg/dL (9-20); Calcium 7.6 mg/dL (8.4-10.2); Carbon Dioxide 23 mmol/L (22-30); Chloride 107 mmol/L (98-107); Estimated CRCL calculation 32 ml/min; Estimated Glomerular Filt Rate > 60; Glucose 87 mg/dL (65-110); Potassium 3.8 mmol/L (3.4-5.0); Sodium 136 mmol/L (137-145)
[2022-01-31 08:00] VITALS: BP 100/62; PULSE 78; RESP 16; TEMP 36.3; O2SAT 100
[2022-01-31] MEDS: oxyCODONE HCL (*CRX) 5 MG TAB IR 10 MG PO ×3 (08:27→20:26)
[2022-01-31] MEDS: LIDOCAINE 5% PATCH 1 PATCH TRANSDERM (08:30)
[2022-01-31] MEDS: TAMSULOSIN HCL 0.4 MG CAPSULE PO (08:30)
[2022-01-31] MEDS: EMPAGLIFLOZIN 12.5 MG TABLET PO (08:30)
[2022-01-31] MEDS: METOPROLOL SUCCINATE EXT REL 100 MG TABCR PO (08:30)
[2022-01-31] MEDS: FERROUS SULFATE 324 MG TABLET PO (08:30)
[2022-01-31] MEDS: CHOLECALCIFEROL 1,000 UNITS TABLET 2000 UNITS PO (08:30)
[2022-01-31] MEDS: ENOXAPARIN 40 MG/0.4 ML SYRINGE SUB-Q (08:30)
[2022-01-31] MEDS: ASPIRIN 81 MG ENTERIC TABLET PO (08:30)
[2022-01-31] MEDS: ATORVASTATIN 40 MG TABLET PO (08:31)
[2022-01-31] MEDS: AMIODARONE HCL 200 MG TABLET PO (08:31)
[2022-01-31] MEDS: lisinopriL 10 MG TABLET PO (08:31)
[2022-01-31 09:00] LABS: Glucose Point of Care 74 mg/dl (65-105)
[2022-01-31 12:03] VITALS: BMI 18.9
[2022-01-31 12:12] LABS: Glucose Point of Care 105 mg/dl (65-105)
[2022-01-31] MEDS: SENNOSIDES 8.6 MG TABLET PO (13:13)
[2022-01-31 13:15] VITALS: BP 98/60; PULSE 79; RESP 16; TEMP 36.3; O2SAT 98
--- NOTE | 2022-01-31 16:23 | P.PNIM_ITS ---
Progress Note: A&P Assessment and Plan (1) Sepsis: Code(s): A41.9 - Sepsis, unspecified organism Status: Acute Assessment and Plan: felt to be secondary to UTI. * Blood cultures pending, negative to date * leukocytosis resolved * afebrile. * lactic acid levels normalized * Continue IV antibiotics (2) Urinary tract infection: Code(s): N39.0 - Urinary tract infection, site not specified Status: Acute Assessment and Plan: as noted above. * Urine culture pending; preliminary results with Proteus vulgaris. * continue IV ceftriaxone * await results and tailor antibiotics accordingly based on susceptibility (3) Urinary retention: Code(s): R33.9 - Retention of urine, unspecified Status: Acute Assessment and Plan: felt to be secondary to Encinas catheter dysfunction * Encinas was replaced and is draining appropriately * continue to monitor urine output (4) Dehydration: Code(s): E86.0 - Dehydration Status: Resolved Assessment and Plan: patient has been adequately rehydrated with IV fluids and is tolerating p.o. intake * IV fluids discontinued on 01/30 (5) Chronic anemia: Code(s): D64.9 - Anemia, unspecified Status: Acute Assessment and Plan: hemoglobin declined 3 points from admission * no evidence of active blood loss * most likely dilutional from IV fluid resuscitation * H&H remaining stable * continue home ferrous sulfate (6) Hypertension: Code(s): I10 - Essential (primary) hypertension Status: Acute Assessment and Plan: Blood pressures have been reasonably controlled * continue home lisinopril and metoprolol. (7) Prostate cancer metastatic to bone: Code(s): C61 - Malignant neoplasm of prostate; C79.51 - Secondary malignant neoplasm of bone Status: Chronic Assessment and Plan: no acute issues. * The patient's oncologist has recommended hospice care and patient is in agreement. Referral has been placed * Meeting with hospice today. 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 Patient is doing well today. Only complaint is chronic low back pain. Otherwise he is doing well. He does feel a bit constipated today and has requested a Dulcolax suppository. States his appetite is improving. Denies nausea, vomiting, fever, or chills. He met with a warehouse representative from hospice today. Informational meeting has been scheduled with the patient and his son in the patient's home this Sunday. Review of Systems Review of Systems: All systems reviewed & are unremarkable except as noted in HPI and below Exam
--- NOTE | 2022-01-31 16:23 | PM.IMPN ---
Progress Note: A&P Assessment and Plan (1) Sepsis: Code(s): A41.9 - Sepsis, unspecified organism Status: Acute Assessment and Plan: felt to be secondary to UTI. Blood cultures pending, negative to date leukocytosis resolved afebrile. lactic acid levels normalized Continue IV antibiotics (2) Urinary tract infection: Code(s): N39.0 - Urinary tract infection, site not specified Status: Acute Assessment and Plan: as noted above. Urine culture pending; preliminary results with Proteus vulgaris. continue IV ceftriaxone await results and tailor antibiotics accordingly based on susceptibility (3) Urinary retention: Code(s): R33.9 - Retention of urine, unspecified Status: Acute Assessment and Plan: felt to be secondary to Encinas catheter dysfunction Encinas was replaced and is draining appropriately continue to monitor urine output (4) Dehydration: Code(s): E86.0 - Dehydration Status: Resolved Assessment and Plan: patient has been adequately rehydrated with IV fluids and is tolerating p.o. intake IV fluids discontinued on 01/30 (5) Chronic anemia: Code(s): D64.9 - Anemia, unspecified Status: Acute Assessment and Plan: hemoglobin declined 3 points from admission no evidence of active blood loss most likely dilutional from IV fluid resuscitation H&H remaining stable continue home ferrous sulfate (6) Hypertension: Code(s): I10 - Essential (primary) hypertension Status: Acute Assessment and Plan: Blood pressures have been reasonably controlled continue home lisinopril and metoprolol. (7) Prostate cancer metastatic to bone: Code(s): C61 - Malignant neoplasm of prostate; C79.51 - Secondary malignant neoplasm of bone Status: Chronic Assessment and Plan: no acute issues. The patient's oncologist has recommended hospice care and patient is in agreement. Referral has been placed Meeting with hospice today. 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 Patient is doing well today. Only complaint is chronic low back pain. Otherwise he is doing well. He does feel a bit constipated today and has requested a Dulcolax suppository. States his appetite is improving. Denies nausea, vomiting, fever, or chills. He met with a hardware supplies sales representative from hospice today. Informational meeting has been scheduled with the patient and his son in the patient's home this Sunday. Review of Systems Review of Systems: All systems reviewed & are unremarkable except as noted in HPI and below Exam Narrative: General: Thin, frail 81-year-old male, sitting up in bed, comfortable, NARD Neuro: awake, alert and oriented x4, speech clear, no focal neuro deficits noted HEENMT: normocephalic, atraumatic, EOMI, sclerae anicteric, moist oral mucosa Respiratory: clear to auscultation bilaterally, nonlabored breathing Cardio: regular rate, regular rhythm with S1-S2 Abdomen: nondistended, normoactive bowel sounds, soft, nontender to palpation : Encinas catheter patent and draining straw-colored uri
[2022-01-31 17:08] LABS: Glucose Point of Care 132 mg/dl (65-105)
[2022-01-31 17:19] VITALS: BP 108/66; PULSE 71; RESP 16; TEMP 36.4; O2SAT 96
[2022-01-31] MEDS: polyethylene glycoL 3350 17 GM POWD.PACK PO (17:26)
[2022-01-31] MEDS: DOCUSATE SODIUM 100 MG CAPSULE PO (20:26)
[2022-01-31] MEDS: AMITRIPTYLINE HCL 25 MG TABLET PO (20:26)
[2022-01-31 22:20] LABS: Glucose Point of Care 123 mg/dl (65-105)
[2022-01-31 22:54] VITALS: BP 116/69; PULSE 78; RESP 16; TEMP 36.7; O2SAT 98
[2022-02-01] VITALS (8 sets, daily range): BP systolic 119–135; BP diastolic 70–76; PULSE 70–81; RESP 14–18; TEMP 36.3–36.8; O2SAT 98–100
[2022-02-01 06:12] LABS: Hematocrit 31.1 % (42.0-52.0); Hemoglobin 9.3 g/dL (14.0-18.0); Mean Corpuscular HGB Conc 29.9 g/dl (32-36); Mean Corpuscular Volume 93.7 fl (80-100); Mean Platelet Volume 9.8 fl (7.4-10.4); Platelet Count Result 235 k/mm3 (150-375); Red Blood Count 3.32 M/mm3 (4.6-6.20); Red Cell Distribution Width 15.1 % (11.5-14.5); White Blood Count 7.1 K/mm3 (4.5-10.0)
[2022-02-01 06:26] LABS: Anion Gap 6 mmol/L (8-16); Blood Urea Nitrogen 20 mg/dL (9-20); Calcium 7.6 mg/dL (8.4-10.2); Carbon Dioxide 24 mmol/L (22-30); Chloride 103 mmol/L (98-107); Estimated CRCL calculation 35 ml/min; Estimated Glomerular Filt Rate > 60; Glucose 87 mg/dL (65-110); Potassium 3.9 mmol/L (3.4-5.0); Sodium 133 mmol/L (137-145)
[2022-02-01] MEDS: oxyCODONE HCL (*CRX) 5 MG TAB IR 10 MG PO ×3 (07:08→20:19)
[2022-02-01 08:38] LABS: Glucose Point of Care 71 mg/dl (65-105)
[2022-02-01] MEDS: DOCUSATE SODIUM 100 MG CAPSULE PO ×2 (08:46→20:23)
[2022-02-01] MEDS: CHOLECALCIFEROL 1,000 UNITS TABLET 2000 UNITS PO (08:46)
[2022-02-01] MEDS: FERROUS SULFATE 324 MG TABLET PO (08:47)
[2022-02-01] MEDS: EMPAGLIFLOZIN 12.5 MG TABLET PO (08:47)
[2022-02-01] MEDS: lisinopriL 10 MG TABLET PO (08:47)
[2022-02-01] MEDS: METOPROLOL SUCCINATE EXT REL 100 MG TABCR PO (08:47)
[2022-02-01] MEDS: AMIODARONE HCL 200 MG TABLET PO (08:48)
[2022-02-01] MEDS: LIDOCAINE 5% PATCH 1 PATCH TRANSDERM (08:49)
[2022-02-01] MEDS: TAMSULOSIN HCL 0.4 MG CAPSULE PO (08:49)
[2022-02-01] MEDS: ASPIRIN 81 MG ENTERIC TABLET PO (08:49)
[2022-02-01] MEDS: ENOXAPARIN 40 MG/0.4 ML SYRINGE SUB-Q (08:49)
[2022-02-01] MEDS: ATORVASTATIN 40 MG TABLET PO (08:49)
[2022-02-01] MEDS: polyethylene glycoL 3350 17 GM POWD.PACK PO (08:50)
[2022-02-01] MEDS: SENNOSIDES 8.6 MG TABLET PO (08:50)
--- NOTE | 2022-02-01 11:15 | P.PNIM_ITS ---
Progress Note: A&P Assessment and Plan (1) Sepsis: Code(s): A41.9 - Sepsis, unspecified organism Status: Acute Assessment and Plan: felt to be secondary to UTI. * Blood cultures pending, negative to date * leukocytosis resolved * afebrile. * lactic acid levels normalized * Continue IV antibiotics * Urine culture grew Proteus vulgaris (2) Urinary tract infection: Code(s): N39.0 - Urinary tract infection, site not specified Status: Acute Assessment and Plan: as noted above. * Urine culture Proteus vulgaris. * change ceftriaxone to Levaquin * await results and tailor antibiotics accordingly based on susceptibility (3) Urinary retention: Code(s): R33.9 - Retention of urine, unspecified Status: Acute Assessment and Plan: felt to be secondary to Encinas catheter dysfunction * Encinas was replaced and is draining appropriately * continue to monitor urine output (4) Dehydration: Code(s): E86.0 - Dehydration Status: Resolved Assessment and Plan: patient has been adequately rehydrated with IV fluids and is tolerating p.o. intake * IV fluids discontinued on 01/30 (5) Chronic anemia: Code(s): D64.9 - Anemia, unspecified Status: Acute Assessment and Plan: hemoglobin declined 3 points from admission * no evidence of active blood loss * most likely dilutional from IV fluid resuscitation * H&H remaining stable, trending up currently 9.3 * continue home ferrous sulfate (6) Hypertension: Code(s): I10 - Essential (primary) hypertension Status: Acute Assessment and Plan: Blood pressures have been reasonably controlled * continue home lisinopril and metoprolol. (7) Prostate cancer metastatic to bone: Code(s): C61 - Malignant neoplasm of prostate; C79.51 - Secondary malignant neoplasm of bone Status: Chronic Assessment and Plan: no acute issues. * The patient's oncologist has recommended hospice care and patient is in agreement. Referral has been placed * Planning for formal meeting with pt and son at home on Sunday (8) Chronic pain: Code(s): G89.29 - Other chronic pain Status: Acute Assessment and Plan: chronic back pain secondary to above and history of lumbar burst fracture * continue with analgesics regimen * as above, planning for hospice care * continue bowel regimen with narcotics Plan suppository ordered for constipation. Consider Relistor Time Spent With Patient Time with patient: Greater than 35 minutes Subjective Date/time seen: 02/01/221114 Interval history: 02/01/221114 patient was not really interested in going over everything. He did state that he was feeling pretty good however he is more focused on having a bowel movement stated that he is just very constipated. His current pain level is a 5 to 6/10. He stated that most of his pain is mostly due to the constipation. He denies any sweats, fevers, chills, nausea, vomiting, chest pain, weakness or fatigue. Patient stated that he is unable to stand as he is not able to get on his feet due to the pain. 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
--- NOTE | 2022-02-01 11:15 | PM.IMPN ---
Progress Note: A&P Assessment and Plan (1) Sepsis: Code(s): A41.9 - Sepsis, unspecified organism Status: Acute Assessment and Plan: felt to be secondary to UTI. Blood cultures pending, negative to date leukocytosis resolved afebrile. lactic acid levels normalized Continue IV antibiotics Urine culture grew Proteus vulgaris (2) Urinary tract infection: Code(s): N39.0 - Urinary tract infection, site not specified Status: Acute Assessment and Plan: as noted above. Urine culture Proteus vulgaris. change ceftriaxone to Levaquin await results and tailor antibiotics accordingly based on susceptibility (3) Urinary retention: Code(s): R33.9 - Retention of urine, unspecified Status: Acute Assessment and Plan: felt to be secondary to Encinas catheter dysfunction Encinas was replaced and is draining appropriately continue to monitor urine output (4) Dehydration: Code(s): E86.0 - Dehydration Status: Resolved Assessment and Plan: patient has been adequately rehydrated with IV fluids and is tolerating p.o. intake IV fluids discontinued on 01/30 (5) Chronic anemia: Code(s): D64.9 - Anemia, unspecified Status: Acute Assessment and Plan: hemoglobin declined 3 points from admission no evidence of active blood loss most likely dilutional from IV fluid resuscitation H&H remaining stable, trending up currently 9.3 continue home ferrous sulfate (6) Hypertension: Code(s): I10 - Essential (primary) hypertension Status: Acute Assessment and Plan: Blood pressures have been reasonably controlled continue home lisinopril and metoprolol. (7) Prostate cancer metastatic to bone: Code(s): C61 - Malignant neoplasm of prostate; C79.51 - Secondary malignant neoplasm of bone Status: Chronic Assessment and Plan: no acute issues. The patient's oncologist has recommended hospice care and patient is in agreement. Referral has been placed Planning for formal meeting with pt and son at home on Sunday (8) Chronic pain: Code(s): G89.29 - Other chronic pain Status: Acute Assessment and Plan: chronic back pain secondary to above and history of lumbar burst fracture continue with analgesics regimen as above, planning for hospice care continue bowel regimen with narcotics Plan suppository ordered for constipation. Consider Relistor Time Spent With Patient Time with patient: Greater than 35 minutes Subjective Date/time seen: 02/01/22 1115 Interval history: 02/01/22 1115 patient was not really interested in going over everything. He did state that he was feeling pretty good however he is more focused on having a bowel movement stated that he is just very constipated. His current pain level is a 5 to 6/10. He stated that most of his pain is mostly due to the constipation. He denies any sweats, fevers, chills, nausea, vomiting, chest pain, weakness or fatigue. Patient stated that he is unable to stand as he is not able to get on his feet due to the pain. 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 Patient is doing well today. Only complaint is chronic low back pain. Otherwise he is doing well. He does feel a bit constipated today and has requested a Dulcolax suppository. States his appetite is improving. Denies nausea, vomiting, fever, or chills. He met with a employment representative from hospice today. Informational meeting has been scheduled with the patient and his son in the patient's home this Sat
[2022-02-01] MEDS: BISACODYL 10 MG SUPPOSITORY RECTAL (11:41)
[2022-02-01 12:29] LABS: Glucose Point of Care 119 mg/dl (65-105)
[2022-02-01 17:23] LABS: Glucose Point of Care 120 mg/dl (65-105)
[2022-02-01] MEDS: levoFLOXacin 750 MG TABLET PO (18:00)
[2022-02-01] MEDS: AMITRIPTYLINE HCL 25 MG TABLET PO (20:23)
[2022-02-01 21:49] LABS: Glucose Point of Care 112 mg/dl (65-105)
[2022-02-02] VITALS (8 sets, daily range): BP systolic 116–160; BP diastolic 69–88; PULSE 75–92; RESP 14–18; TEMP 36.4–36.8; O2SAT 95–100
[2022-02-02] MEDS: oxyCODONE HCL (*CRX) 5 MG TAB IR 10 MG PO ×5 (01:18→20:46)
[2022-02-02 05:52] LABS: Basophils Absolute Auto 0.1 K/mm3 (0.0-0.1); Basophils Percent Auto 0.9 % (0.2-1.2); Eosinophils Absolute Auto 0.1 K/mm3 (0-0.3); Eosinophils Percent Auto 1.3 % (0-4.4); Hematocrit 29.8 % (42.0-52.0); Hemoglobin 9.3 g/dL (14.0-18.0); Immature Granulocyte Absolute 0.03 K/mm3 (0.00-0.031); Immature Granulocyte Percent A 0.4 % (0-0.5); Lymphocytes Absolute Auto 0.96 K/mm3 (0.9-3.2); Lymphocytes Percent Auto 14.1 % (18.3-44.2); Mean Corpuscular HGB Conc 31.2 g/dl (32-36); Mean Corpuscular Volume 89.8 fl (80-100); Mean Platelet Volume 9.9 fl (7.4-10.4); Monocytes Absolute Auto 0.6 K/mm3 (0.1-0.6); Monocytes Percent Auto 8.4 % (2.6-8.5); Neutrophils Absolute Auto 5.1 K/mm3 (1.3-6.7); Neutrophils Percent Auto 74.9 % (45.5-73.1); Platelet Count Result 243 k/mm3 (150-375); Red Blood Count 3.32 M/mm3 (4.6-6.20); Red Cell Distribution Width 14.8 % (11.5-14.5); White Blood Count 6.8 K/mm3 (4.5-10.0)
[2022-02-02 05:56] LABS: Alanine Aminotransferase 17 U/L (6-50); Albumin Level 3.2 g/dL (3.5-5.1); Alkaline Phosphatase 66 U/L (38-126); Anion Gap 5 mmol/L (8-16); Aspartate Amino Transferase 25 U/L (17-59); Bilirubin,Total 0.3 mg/dL (0.2-1.3); Blood Urea Nitrogen 17 mg/dL (9-20); Calcium 7.7 mg/dL (8.4-10.2); Carbon Dioxide 28 mmol/L (22-30); Chloride 104 mmol/L (98-107); Estimated CRCL calculation 32 ml/min; Estimated Glomerular Filt Rate 58; Glucose 86 mg/dL (65-110); Potassium 3.9 mmol/L (3.4-5.0); Sodium 137 mmol/L (137-145)
[2022-02-02] MEDS: fentaNYL (*CRX) 12 MCG PATCH TRANSDERM (06:11)
[2022-02-02] MEDS: fentaNYL (*CRX) 25 MCG PATCH TRANSDERM (06:12)
[2022-02-02] MEDS: LIDOCAINE 5% PATCH 1 PATCH TRANSDERM (08:36)
[2022-02-02] MEDS: lisinopriL 10 MG TABLET PO (08:42)
[2022-02-02] MEDS: METOPROLOL SUCCINATE EXT REL 100 MG TABCR PO (08:42)
[2022-02-02] MEDS: TAMSULOSIN HCL 0.4 MG CAPSULE PO (08:42)
[2022-02-02] MEDS: ASPIRIN 81 MG ENTERIC TABLET PO (08:43)
[2022-02-02] MEDS: ATORVASTATIN 40 MG TABLET PO (08:43)
[2022-02-02] MEDS: CHOLECALCIFEROL 1,000 UNITS TABLET 2000 UNITS PO (08:43)
[2022-02-02] MEDS: DOCUSATE SODIUM 100 MG CAPSULE PO ×2 (08:43→20:46)
[2022-02-02] MEDS: EMPAGLIFLOZIN 12.5 MG TABLET PO (08:43)
[2022-02-02] MEDS: FERROUS SULFATE 324 MG TABLET PO (08:43)
[2022-02-02] MEDS: AMIODARONE HCL 200 MG TABLET PO (08:43)
[2022-02-02] MEDS: ENOXAPARIN 40 MG/0.4 ML SYRINGE SUB-Q (08:44)
[2022-02-02] MEDS: polyethylene glycoL 3350 17 GM POWD.PACK PO (08:44)
[2022-02-02] MEDS: SENNOSIDES 8.6 MG TABLET PO (08:45)
[2022-02-02 08:54] LABS: Transferrin 178 mg/dL (206-381)
[2022-02-02 09:18] LABS: Glucose Point of Care 73 mg/dl (65-105)
[2022-02-02 09:18] LABS: Iron 38 ug/dL (49-181)
[2022-02-02 09:27] LABS: Percent Iron Saturation 16 % (20-50)
[2022-02-02 09:55] LABS: Folic Acid 8.2 ng/mL (2.76->20)
--- NOTE | 2022-02-02 10:45 | P.PNIM_ITS ---
Progress Note: A&P Assessment and Plan (1) Sepsis: Code(s): A41.9 - Sepsis, unspecified organism Status: Acute Assessment and Plan: * felt to be secondary to UTI. * Blood cultures pending, negative to date * leukocytosis resolved * afebrile. * lactic acid levels normalized * changed to levaquin * Urine culture grew Proteus vulgaris * Resolved (2) Urinary tract infection: Code(s): N39.0 - Urinary tract infection, site not specified Status: Acute Assessment and Plan: * as noted above. * Urine culture Proteus vulgaris. * Continue Levaquin * await results and tailor antibiotics accordingly based on susceptibility (3) Urinary retention: Code(s): R33.9 - Retention of urine, unspecified Status: Acute Assessment and Plan: * felt to be secondary to Encinas catheter dysfunction * Encinas was replaced and is draining appropriately * continue to monitor urine output (4) Dehydration: Code(s): E86.0 - Dehydration Status: Resolved Assessment and Plan: * patient has been adequately rehydrated with IV fluids and is tolerating p.o. intake * IV fluids discontinued on 01/30 (5) Chronic anemia: Code(s): D64.9 - Anemia, unspecified Status: Acute Assessment and Plan: hemoglobin declined 3 points from admission * no evidence of active blood loss * most likely dilutional from IV fluid resuscitation * H&H remaining stable, trending up currently 9.3 * Anemia labs Iron 38, TIBC 243, % saturation 16, transferrin 178, ferritin 83.7, B12 818, folate 8.2 * continue home ferrous sulfate (6) Hypertension: Code(s): I10 - Essential (primary) hypertension Status: Acute Assessment and Plan: * Current BP is 138/76 * Blood pressures have been reasonably controlled * continue home lisinopril and metoprolol. (7) Prostate cancer metastatic to bone: Code(s): C61 - Malignant neoplasm of prostate; C79.51 - Secondary malignant neoplasm of bone Status: Chronic Assessment and Plan: * no acute issues. * The patient's oncologist has recommended hospice care and patient is in agreement. Referral has been placed * Planning for formal meeting with pt and son at home on Sunday (8) Chronic pain: Code(s): G89.29 - Other chronic pain Status: Acute Assessment and Plan: chronic back pain secondary to above and history of lumbar burst fracture * continue with analgesics regimen * as above, planning for hospice care * continue bowel regimen with narcotics Plan suppository ordered for constipation. Consider Relistor Time Spent With Patient Time with patient: Greater than 35 minutes Subjective Date/time seen: 02/02/22 1045 Interval history: 02/02/221044 Patient is doing ok. He is having some pain, but it seems controlled. He denies any chest pain, shortness of breath, nausea, vomiting, diarrhea, co nstipation. and had a BM yesterday. Talked to his son about the plan. Seems to be setup. Will proceed with plan that is set. 02/01/22 111 patient was not really interested in going over everything. He did state that he was feeling pretty good however he is more focused on having a bowel movement stated that he is just very constipated. His current pain level is a 5 to 6/10. He stated that most of his pain is mostly due to the constipation. He denies any sweats, fevers, chills, nausea, vomit
--- NOTE | 2022-02-02 10:45 | PM.IMPN ---
Progress Note: A&P Assessment and Plan (1) Sepsis: Code(s): A41.9 - Sepsis, unspecified organism Status: Acute Assessment and Plan: felt to be secondary to UTI. Blood cultures pending, negative to date leukocytosis resolved afebrile. lactic acid levels normalized changed to levaquin Urine culture grew Proteus vulgaris Resolved (2) Urinary tract infection: Code(s): N39.0 - Urinary tract infection, site not specified Status: Acute Assessment and Plan: as noted above. Urine culture Proteus vulgaris. Continue Levaquin await results and tailor antibiotics accordingly based on susceptibility (3) Urinary retention: Code(s): R33.9 - Retention of urine, unspecified Status: Acute Assessment and Plan: felt to be secondary to Encinas catheter dysfunction Encinas was replaced and is draining appropriately continue to monitor urine output (4) Dehydration: Code(s): E86.0 - Dehydration Status: Resolved Assessment and Plan: patient has been adequately rehydrated with IV fluids and is tolerating p.o. intake IV fluids discontinued on 01/30 (5) Chronic anemia: Code(s): D64.9 - Anemia, unspecified Status: Acute Assessment and Plan: hemoglobin declined 3 points from admission no evidence of active blood loss most likely dilutional from IV fluid resuscitation H&H remaining stable, trending up currently 9.3 Anemia labs Iron 38, TIBC 243, % saturation 16, transferrin 178, ferritin 83.7, B12 818, folate 8.2 continue home ferrous sulfate (6) Hypertension: Code(s): I10 - Essential (primary) hypertension Status: Acute Assessment and Plan: Current BP is 138/76 Blood pressures have been reasonably controlled continue home lisinopril and metoprolol. (7) Prostate cancer metastatic to bone: Code(s): C61 - Malignant neoplasm of prostate; C79.51 - Secondary malignant neoplasm of bone Status: Chronic Assessment and Plan: no acute issues. The patient's oncologist has recommended hospice care and patient is in agreement. Referral has been placed Planning for formal meeting with pt and son at home on Sunday (8) Chronic pain: Code(s): G89.29 - Other chronic pain Status: Acute Assessment and Plan: chronic back pain secondary to above and history of lumbar burst fracture continue with analgesics regimen as above, planning for hospice care continue bowel regimen with narcotics Plan suppository ordered for constipation. Consider Relistor Time Spent With Patient Time with patient: Greater than 35 minutes Subjective Date/time seen: 02/02/22 1045 Interval history: 02/02/221044 Patient is doing ok. He is having some pain, but it seems controlled. He denies any chest pain, shortness of breath, nausea, vomiting, diarrhea, constipation. and had a BM yesterday. Talked to his son about the plan. Seems to be setup. Will proceed with plan that is set. 02/01/22 111 patient was not really interested in going over everything. He did state that he was feeling pretty good however he is more focused on having a bowel movement stated that he is just very constipated. His current pain level is a 5 to 6/10. He stated that most of his pain is mostly due to the constipation. He denies any sweats, fevers, chills, nausea, vomiting, chest pain, weakness or fatigue. Patient stated that he is unable to stand as he is not able to get on his feet due to the pain. 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
[2022-02-02 12:17] LABS: Glucose Point of Care 102 mg/dl (65-105)
[2022-02-02 17:23] LABS: Glucose Point of Care 109 mg/dl (65-105)
[2022-02-02] MEDS: AMITRIPTYLINE HCL 25 MG TABLET PO (20:47)
[2022-02-02 22:45] LABS: Glucose Point of Care 110 mg/dl (65-105)
[2022-02-03] VITALS (7 sets, daily range): BP systolic 106–122; BP diastolic 65–76; PULSE 65–81; RESP 14–16; TEMP 36.4–36.6; O2SAT 97–99
[2022-02-03] MEDS: oxyCODONE HCL (*CRX) 5 MG TAB IR 10 MG PO ×4 (00:41→14:35)
[2022-02-03 06:04] LABS: Basophils Absolute Auto 0.1 K/mm3 (0.0-0.1); Basophils Percent Auto 1.1 % (0.2-1.2); Eosinophils Absolute Auto 0.1 K/mm3 (0-0.3); Hematocrit 31.3 % (42.0-52.0); Hemoglobin 9.6 g/dL (14.0-18.0); Immature Granulocyte Absolute 0.03 K/mm3 (0.00-0.031); Immature Granulocyte Percent A 0.5 % (0-0.5); Lymphocytes Absolute Auto 0.98 K/mm3 (0.9-3.2); Lymphocytes Percent Auto 15.1 % (18.3-44.2); Mean Corpuscular HGB Conc 30.7 g/dl (32-36); Mean Corpuscular Volume 87.9 fl (80-100); Monocytes Absolute Auto 0.6 K/mm3 (0.1-0.6); Monocytes Percent Auto 9.7 % (2.6-8.5); Neutrophils Absolute Auto 4.7 K/mm3 (1.3-6.7); Neutrophils Percent Auto 71.6 % (45.5-73.1); Platelet Count Result 268 k/mm3 (150-375); Red Blood Count 3.56 M/mm3 (4.6-6.20); Red Cell Distribution Width 14.6 % (11.5-14.5); White Blood Count 6.5 K/mm3 (4.5-10.0)
[2022-02-03 06:27] LABS: Alanine Aminotransferase 15 U/L (6-50); Albumin Level 3.2 g/dL (3.5-5.1); Alkaline Phosphatase 66 U/L (38-126); Anion Gap 5 mmol/L (8-16); Aspartate Amino Transferase 23 U/L (17-59); Bilirubin,Total 0.4 mg/dL (0.2-1.3); Blood Urea Nitrogen 18 mg/dL (9-20); Carbon Dioxide 26 mmol/L (22-30); Chloride 101 mmol/L (98-107); Estimated CRCL calculation 35 ml/min; Estimated Glomerular Filt Rate > 60; Glucose 88 mg/dL (65-110); Magnesium 2.1 mg/dL (1.6-2.3); Potassium 4.2 mmol/L (3.4-5.0); Sodium 132 mmol/L (137-145)
[2022-02-03] MEDS: TAMSULOSIN HCL 0.4 MG CAPSULE PO (08:38)
[2022-02-03] MEDS: METOPROLOL SUCCINATE EXT REL 100 MG TABCR PO (08:39)
[2022-02-03] MEDS: polyethylene glycoL 3350 17 GM POWD.PACK PO (08:39)
[2022-02-03] MEDS: SENNOSIDES 8.6 MG TABLET PO (08:39)
[2022-02-03] MEDS: LIDOCAINE 5% PATCH 1 PATCH TRANSDERM (08:40)
[2022-02-03] MEDS: lisinopriL 10 MG TABLET PO (08:40)
[2022-02-03] MEDS: levoFLOXacin 750 MG TABLET PO (08:40)
[2022-02-03] MEDS: ASPIRIN 81 MG ENTERIC TABLET PO (08:41)
[2022-02-03] MEDS: FERROUS SULFATE 324 MG TABLET PO (08:41)
[2022-02-03] MEDS: ATORVASTATIN 40 MG TABLET PO (08:41)
[2022-02-03] MEDS: CHOLECALCIFEROL 1,000 UNITS TABLET 2000 UNITS PO (08:41)
[2022-02-03] MEDS: DOCUSATE SODIUM 100 MG CAPSULE PO (08:41)
[2022-02-03] MEDS: EMPAGLIFLOZIN 12.5 MG TABLET PO (08:42)
[2022-02-03] MEDS: ENOXAPARIN 40 MG/0.4 ML SYRINGE SUB-Q (08:42)
[2022-02-03] MEDS: AMIODARONE HCL 200 MG TABLET PO (08:42)
[2022-02-03 08:46] LABS: Glucose Point of Care 77 mg/dl (65-105)
--- NOTE | 2022-02-03 09:55 | P.CDI_ITS ---
CDI Query Clarification Request Unable to determine <KITTY Alanis - Last Filed: 02/03/22 11:08> Clarified Diagnosis Clarified Diagnosis: Urine culture from 01/29/22 grew 50,000-100,000 Proteus Vulgaris. Chronic indwelling armijo Catheter documented. Pt started on Levaquin. Clarification request - UTI has been documented, chronic indwelling armijo catheter documented. Please clarify if UTI is: * due to/associated with chronic indwelling armijo catheter * not due to/associated with chronic indwelling armijo catheter * unable to determine <Nayana Souza RN - Last Filed: 02/03/22 10:02>
--- NOTE | 2022-02-03 11:15 | PM.DS ---
DS: Admitting Diagnosis Discharge Date 02/03/22 1115 Admitting Diagnosis UTI DS: Discharge Diagnosis Discharge Diagnosis (1) Sepsis: Code(s): A41.9 - Sepsis, unspecified organism Status: Acute Assessment and Plan: felt to be secondary to UTI. Blood cultures pending, negative to date leukocytosis resolved afebrile. lactic acid levels normalized changed to levaquin Urine culture grew Proteus vulgaris Resolved (2) Urinary tract infection: Code(s): N39.0 - Urinary tract infection, site not specified Status: Acute Assessment and Plan: as noted above. Urine culture Proteus vulgaris. Continue Levaquin await results and tailor antibiotics accordingly based on susceptibility (3) Urinary retention: Code(s): R33.9 - Retention of urine, unspecified Status: Acute Assessment and Plan: felt to be secondary to Encinas catheter dysfunction Encinas was replaced and is draining appropriately continue to monitor urine output (4) Dehydration: Code(s): E86.0 - Dehydration Status: Resolved Assessment and Plan: patient has been adequately rehydrated with IV fluids and is tolerating p.o. intake IV fluids discontinued on 01/30 (5) Chronic anemia: Code(s): D64.9 - Anemia, unspecified Status: Acute Assessment and Plan: hemoglobin declined 3 points from admission no evidence of active blood loss most likely dilutional from IV fluid resuscitation H&H remaining stable, trending up currently 9.3 Anemia labs Iron 38, TIBC 243, % saturation 16, transferrin 178, ferritin 83.7, B12 818, folate 8.2 continue home ferrous sulfate (6) Hypertension: Code(s): I10 - Essential (primary) hypertension Status: Acute Assessment and Plan: Current BP is 138/76 Blood pressures have been reasonably controlled continue home lisinopril and metoprolol. (7) Prostate cancer metastatic to bone: Code(s): C61 - Malignant neoplasm of prostate; C79.51 - Secondary malignant neoplasm of bone Status: Chronic Assessment and Plan: no acute issues. The patient's oncologist has recommended hospice care and patient is in agreement. Referral has been placed Planning for formal meeting with pt and son at home on Sunday (8) Chronic pain: Code(s): G89.29 - Other chronic pain Status: Acute Assessment and Plan: chronic back pain secondary to above and history of lumbar burst fracture continue with analgesics regimen as above, planning for hospice care continue bowel regimen with narcotics Plan suppository ordered for constipation. Consider Relistor DS: Summary Hospital Course Hospital Course: patient is an 81-year-old male with a past medical history of prostate cancer with metastasis to the, urinary tension with chronic indwelling Encinas catheter, coronary artery disease who presented the ED with abdominal pain. Patient did have a known back burst fracture has been having uncontrolled pain. Upon arrival it was noted that the patient did have infectious appearing UA and urine culture did grow Proteus vulgaris. Patient did meet sepsis criteria upon arrival and IV fluids along with IV antibiotics were initiated in the ED. antibiotics have been changed to oral antibiotics at this time. Patient was also noted to have urinary retention and urinary catheter was exchanged. Hemoglobin hematocrit have been on trend and iron has been noted to be low however increased home iron supplementation b.i.d. at this time. Blood pressures been well controlled. Patient's son and him have been discussing options of further care. It was decided that the patient will most likely go hospice however undecided on which company to go with. Son has agreed to meet with hospice along with patient at home on Sunday. Patient is being discharged to home for anticipation o
--- NOTE | 2022-02-03 11:15 | P.DS_ITS ---
DS: Admitting Diagnosis Discharge Date 02/03/22 1115 Admitting Diagnosis UTI DS: Discharge Diagnosis Discharge Diagnosis (1) Sepsis: Code(s): A41.9 - Sepsis, unspecified organism Status: Acute Assessment and Plan: * felt to be secondary to UTI. * Blood cultures pending, negative to date * leukocytosis resolved * afebrile. * lactic acid levels normalized * changed to levaquin * Urine culture grew Proteus vulgaris * Resolved (2) Urinary tract infection: Code(s): N39.0 - Urinary tract infection, site not specified Status: Acute Assessment and Plan: * as noted above. * Urine culture Proteus vulgaris. * Continue Levaquin * await results and tailor antibiotics accordingly based on susceptibility (3) Urinary retention: Code(s): R33.9 - Retention of urine, unspecified Status: Acute Assessment and Plan: * felt to be secondary to Encinas catheter dysfunction * Encinas was replaced and is draining appropriately * continue to monitor urine output (4) Dehydration: Code(s): E86.0 - Dehydration Status: Resolved Assessment and Plan: * patient has been adequately rehydrated with IV fluids and is tolerating p.o. intake * IV fluids discontinued on 01/30 (5) Chronic anemia: Code(s): D64.9 - Anemia, unspecified Status: Acute Assessment and Plan: hemoglobin declined 3 points from admission * no evidence of active blood loss * most likely dilutional from IV fluid resuscitation * H&H remaining stable, trending up currently 9.3 * Anemia labs Iron 38, TIBC 243, % saturation 16, transferrin 178, ferritin 83.7, B12 818, folate 8.2 * continue home ferrous sulfate (6) Hypertension: Code(s): I10 - Essential (primary) hypertension Status: Acute Assessment and Plan: * Current BP is 138/76 * Blood pressures have been reasonably controlled * continue home lisinopril and metoprolol. (7) Prostate cancer metastatic to bone: Code(s): C61 - Malignant neoplasm of prostate; C79.51 - Secondary malignant neoplasm of bone Status: Chronic Assessment and Plan: * no acute issues. * The patient's oncologist has recommended hospice care and patient is in agreement. Referral has been placed * Planning for formal meeting with pt and son at home on Sunday (8) Chronic pain: Code(s): G89.29 - Other chronic pain Status: Acute Assessment and Plan: chronic back pain secondary to above and history of lumbar burst fracture * continue with analgesics regimen * as above, planning for hospice care * continue bowel regimen with narcotics Plan suppository ordered for constipation. Consider Relistor DS: Summary Hospital Course Hospital Course: patient is an 81-year-old male with a past medical history of prostate cancer with metastasis to the, urinary tension with chronic indwelling Encinas catheter, coronary artery disease who presented the ED with abdominal pain. Patient did have a known back burst fracture has been having uncontrolled pain. Upon arrival it was noted that the patient did have infectious appearing UA and urine culture did grow Proteus vulgaris. Patient did meet sepsis criteria upon arrival and IV fluids along with IV antibiotics were initiated in the ED. antibiotics have been changed to oral antibiotics at this time. Patient was also noted to have urinary retention and urinary catheter was exchange
[2022-02-03 12:24] LABS: Glucose Point of Care 104 mg/dl (65-105)
[2022-02-03] MEDS: BISACODYL 10 MG SUPPOSITORY RECTAL (12:47)
== END 2022-02-03 17:29 | disposition home or self-care (01) | DRG 698 ==
LOC: ANHED 12:39 → ANH3MEDSUR 14:59 → ANH2MED 20:55
PROVIDERS: Emergency Medicine; Physician Assistant; Admitting Provider Family Medicine; Emergency Provider Preventive Medicine Aerospace Medicine; Visit Provider Nurse Practitioner
DX: T83.511A Infection and inflammatory reaction due to indwelling urethral catheter, initial encounter (principal); A41.9 Sepsis, unspecified organism; C79.51 Secondary malignant neoplasm of bone; Z68.1 Body mass index [BMI] 19.9 or less, adult; R64 Cachexia; T83.091A Other mechanical complication of indwelling urethral catheter, initial encounter; R33.9 Retention of urine, unspecified; C61 Malignant neoplasm of prostate; I48.0 Paroxysmal atrial fibrillation; I10 Essential (primary) hypertension; I25.10 Atherosclerotic heart disease of native coronary artery without angina pectoris; B96.4 Proteus (mirabilis) (morganii) as the cause of diseases classified elsewhere; D64.9 Anemia, unspecified; E78.5 Hyperlipidemia, unspecified; E86.0 Dehydration; M19.90 Unspecified osteoarthritis, unspecified site; R73.03 Prediabetes; Z20.822 Contact with and (suspected) exposure to COVID-19; Z95.1 Presence of aortocoronary bypass graft; Z79.82 Long term (current) use of aspirin
CPT/HCPCS: 36415; 51702; 74177; 80048; 80053; 81001; 82607; 82728; 82746; 82948; 83036; 83540; 83550; 83605; 83690; 83735; 84466; 85014; 85018; 85025; 85027; 87040; 87077; 87086; 87088; 87186; 87636; 93005; 96361; 96365; 96366; 96367; 96372; 96375; 96376; 99285; A9270; G0378; J0696; J1650; J2543; J3010; J7030; Q9967